=== PATIENT | female | born 1970 | race Caucasian/White ===

== ENCOUNTER 2022-05-30 10:49 | Observation (INO) | payer BC, SELFPAY ==
[2022-05-30] VITALS (7 sets, daily range): BP systolic 136–164; BP diastolic 75–94; PULSE 60–73; RESP 18; TEMP 36.3–36.6; O2SAT 97–100; BMI 34.4; BMI 34.2
--- NOTE | 2022-05-30 10:54 | ED.RN ---
PT SAW DR FOR SAME. LAST WEEK
--- NOTE | 2022-05-30 11:26 | CT_ITS ---
STUDY: CTA HEAD AND NECK WITH CONTRAST REASON FOR EXAM: Female, 51 years old. cephalgia, weakness right arm RADIATION DOSAGE (If Supplied By Facility): CTDIvol = ( 22.49 ) mGy, DLP = ( 809.77 ) mGycm TECHNIQUE: CT angiography was performed with a multi-detector CT scanner. Data acquisition was obtained from the skull base through the vertex following intravenous administration of IV 100mL [id number]-370. MIP images were reconstructed from the axial data set. Post-processing of the angiographic images was performed, with multiplanar reformation and 3D reconstruction. Individualized dose optimization techniques were used for this CT. COMPARISON: No relevant priors. FINDINGS: Normal bilateral petrous carotid arteries. Normal right cavernous carotid artery with a normal supraclinoid bifurcation. Normal left cavernous carotid artery with a normal supraclinoid bifurcation. Normal right A1 segments of the anterior cerebral artery. Normal left A1 segments of the anterior cerebral artery. Normal intact anterior communicating artery (ACOM). Normal bilateral A2 segments of the anterior cerebral arteries. Normal right M1 and M2 segments of the middle cerebral arteries, with a normal M1 bifurcation. Normal left M1 and M2 segments of the middle cerebral arteries, with a normal M1 bifurcation. Normal right posterior communicating artery (PCOM). Normal left posterior communicating artery (PCOM). Normal bilateral vertebral arteries. Normal basilar artery with a normal basilar bifurcation. The visualized bilateral superior cerebellar (SCA) arteries are normal. Normal bilateral P1, P2 and visualized P3 segments of the posterior cerebral arteries. There is no demonstrated aneurysm of the [place]. There is no demonstrated abnormality of the visualized brain. AORTIC ARCH: Normal visualized aortic arch. Normal origins of the brachiocephalic, left common carotid, and left subclavian arteries. RIGHT CAROTID ARTERIES: Normal right common carotid artery (CCA). Normal right common carotid bulb. Normal origin of the right internal carotid (ICA) artery without a hemodynamically significant stenosis. Normal visualized cervical portion of the right internal carotid artery. Normal origin of the right external carotid artery (ECA). LEFT CAROTID ARTERIES: Normal left common carotid artery (CCA). Normal left common carotid bulb. Normal origin of the left internal carotid (ICA) artery without a hemodynamically significant stenosis. Normal visualized cervical portion of the left internal carotid artery. Normal origin of the left external carotid artery (ECA). VERTEBRAL ARTERIES: There is enhancement within the bilateral vertebral arteries with a small left vertebral artery, and a dominant right vertebral artery. IMPRESSION: No evidence of significant steno-occlusive disease or aneurysm. Electronically Signed: Jonathan GilDO at 12:55 EDT , STUDY: CT BRAIN WITHOUT CONTRAST REASON FOR EXAM: Female, 51 years old. cephalgia, weakness right arm RADIATION DOSAGE (If Supplied By Facility): CTDIvol = ( 44.99 ) mGy, DLP = ( 779.24 ) mGycm TECHNIQUE: Transaxial CT imaging of the brain was performed without administration of intravenous contrast material. Individualized dose optimization techniques were used for this CT. COMPARISON: No relevant priors. FINDINGS: Normal soft tissue structures. Normal calvarium. Normal size ventricles and extra-axial spaces for the patient''s age. Normal white matter tracts of the cerebral hemispheres. Normal basal ganglia and thalami. Normal brainstem. Normal cerebellum. There is no intracranial hemorrhage. There are no findings of an acute ischemic infarction. Normal visualized paranasal sinuses. CT/CTA Head AND Neck W/ Contrast IMPRESSION: No evidence of acute intracranial bleed, mass or ischemia. Electronically Signed: Jonathan Gil DO at 12:55 EDT ,
--- NOTE | 2022-05-30 11:28 | EDS_ITS ---
HPI History of Present Illness Chief Complaint: Headache Detail of Chief Complaint: Headache, neck pain, left arm weakness Informant: patient and family Onset/Context/Timing Current Severity: 06/28 Narrative Narrative: Patient presents the emergency department with complaint of headache and neck pain and left arm weakness. Patient states that symptoms have been going on for about 5 days. Patient denies falls or head injuries. Patient does have history of migraines and she has had neck problems for quite some time and 20 years ago she was told she had herniated disks in her neck. Patient is never had pain in her head quite like this before. Patient states she cannot lay flat due to the amount of pain. She was seen by her primary care physician 5 days ago who ordered x-rays of her neck that were essentially unremarkable and only showed some degenerative changes at C5-6. Patient complains of some left arm weakness. She does have history of some peripheral neuropathy. She denies recent illness otherwise. Prior similar symptoms: No PFSH PFSH Medical History Chronic neck pain Nerve pain TIA (transient ischemic attack) Allergy/AdvReac Type Severity Reaction Status Date / Time cyclobenzaprine Allergy Other Verified 05/30/22 10:54 [From Flexeril] metaxalone [From Skelaxin] Allergy Itching Verified 05/30/22 10:54 moxifloxacin [From Avelox] Allergy Other Verified 05/30/22 10:54 pregabalin [From Lyrica] Allergy Other Verified 05/30/22 10:54 Social History Smoking Status: Never smoker ROS ROS ED Review of Systems ROS Unobtainable: other Constitutional Constitutional ED: Reports lethargy; Denies chills, fever(s), sweats or weight loss Eyes Eyes: Denies blurry vision, change in vision or diplopia ENT ENT ED: Denies rhinorrhea or sore throat Cardiovascular Cardiovascular: Reports chest pain and racing heartbeat; Denies orthopnea Respiratory/Chest Respiratory/Chest: Reports dyspnea and dyspnea on exertion; Denies cough, orthop terry or sputum Gastrointestinal Gastrointestinal: Denies abdominal pain, diarrhea, nausea or vomiting Genitourinary Genitourinary ED: Denies dysuria, hematuria or urinary frequency Musculoskeletal Musculoskeletal: Reports neck pain; Denies arthralgias, back pain or myalgias Integumentary Denies abscess, Abrasions or rash Neurologic Neurologic: Reports headache(s), weakness and other Details: Left arm weakness Psychiatric Psychiatric: Denies anxiety, depression or suicidal thoughts Endocrine Endocrinology: Denies polydipsia, polyphagia or polyuria Hematologic/Lymphatic Hematologic/Lymphatic: Denies easy bleeding, easy bruising or lymphadenopathy Allergic/Immunologic Allergic/Immunologic ED: Denies mouth swelling, tongue swelling or urticaria EXAM Physical Exam Const Vital Signs: 05/30/22 10:50 05/30/22 14:33 Temperature 97.9 F Temperature Source Temporal Pulse Rate 73 71 Respiratory Rate 18 18 Blood Pressure 164/81 H 159/94 H Blood Pressure Mean 108 115 Pulse Ox 100 100 Oxygen Delivery Method Room Air Room Air Positive well nourished and well developed General Appearance ED: well developed and NAD HEENT Reports TM's clear and moist mucous membranes HEENT Narrative: Tenderness over left temporal artery however I do not appreciate any firmness or induration. Patient also with tenderness over upper and lower teeth on the left. normocephalic and atraumatic; Negative for trauma or tenderness Tympanic Membrane ED: Yes TM's clear Eyes PERRL and EOMs intact bilaterally General Eye ED: Negative for pale conjunctiva or scleral icterus Neck no lymphadenopathy, supple and no JVD Neck Narrative: Tenderness over left lateral neck on exam. No masses palpated. No erythema or warmth noted. General: Negative for tenderness Chest Wall inspection of chest normal and palpation of chest normal Chest: Negative for tenderness Resp normal respiratory effort and clear to auscultation bilaterally Effort and Inspection: Negative for respiratory distress or pain with movement Auscultation: Negative for rhonchi, wheezes or diminished lung sounds Cardio regular rate, regular rhythm, S1 normal heart sound, S2 normal heart sound and no murmurs Peripheral Pulses: pulses 2+ throughout GI normal to inspection, nondistended, normoactive bowel sounds, soft to palpation, non-tender, non-distended and no masses Back/Spine no CVA tenderness and no thoracic nor lumbar tenderness Extremity normal to inspection General Extremety ED: Negative for edema General Extremity: Negative for edema Neuro oriented x3, CN's II-XII intact bilaterally, no sensory deficits noted and gait normal Neuro Narrative: No facial droop noted. Patient has some subtle left-sided arm weakness compared to the right side however she still has the ability to lift the arm off the bed to a count of 10. Sensorium / Orientation: awake, alert, oriented to person, oriented to place and oriented to time Motor Exam: strength 5/5 throughout and strength abnormal Psych mental status grossly normal Skin no rashes or lesions noted and no wounds MDM MDM MDM Narrative Medical decision making narrative: IV line established on arrival. Patient was medicated Dilaudid and Zofran. She had some pain relief with that but continues to complain of significant pain. Patient had a CT of the head and neck that were unremarkable. Lab work-up showed a normal white count but did have an elevated sed rate of 45. Chemistries unremarkable. At this point etiology of her headache and left arm weakness unclear. Will recommend admission for further work-up and evaluation such as possibly MRI of the head and neck. Case will be discussed with hospitalist evaluate for admission. Lab Data Attestation: I reviewed the patient's lab results. Labs: Laboratory Results - last 24 hr 05/30/22 05/30/22 11:15 11:15 WBC 9.6 RBC 5.52 H Hgb 16.3 H Hct 48.7 H MCV 88.2 MCH 29.5 MCHC 33.5 RDW Std Deviation 44.0 H RDW Coeff of Michael 13.6 Plt Count 233 MPV 10.2 Immature Gran % (Auto) 0.800 Neut % (Auto) 67.6 Lymph % (Auto) 24.1 [place] % (Auto) 5.1 Eos % (Auto) 1.9 Baso % (Auto) 0.5 Absolute Neuts (auto) 6.5 Absolute Lymphs (auto) 2.30 Nucleated RBC % 0 ESR 45 H Sodium 140 Potassium 3.9 Chloride 107 Carbon Dioxide 26.0 Anion Gap 7 BUN 14 Creatinine 0.69 Estim Creat Clear Calc 92.75 Est GFR (MDRD) Af Amer 114 Est GFR (MDRD) Non-Af 94 BUN/Creatinine Ratio 20.2 H Glucose 154 H Calcium 10.1 Radiography Diagnostic Testing: Clinical Impression(s) from Imaging Studies Head/Neck CTA 05/30/22 11:26 IMPRESSION: No evidence of acute intracranial bleed, mass or ischemia. Electronically Signed: Jonathan Gil DO at 12:55 EDT , Discharge Plan Dx/Rx/DC Orders Clinical Impression: Acute intractable headache, Neck pain, Left arm weakness Disposition Disposition: Acute Care Hospital [facility]
[2022-05-30] MEDS: 0.9% Normal Saline 1,000 ML 150 ML IV (11:34)
[2022-05-30] MEDS: Ondansetron 4 MG/2 ML Vial IV (11:35)
[2022-05-30] MEDS: HYDROmorphone 1 MG/ML Syringe IV (11:36)
[2022-05-30 11:59] LABS: Absolute Neutrophil Count 6.5 X10^3/uL (2.0-7.7); Basophil# 0.05 X10^3/uL; Basophil% 0.5 % (0-1); Eosinophil# 0.18 X10^3/uL; Eosinophils% 1.9 % (0-5); Hematocrit 48.7 % (37-47); Hemoglobin 16.3 g/dL (12.0-15.0); Lymphocyte % 24.1 % (19-41); Mean Corp Hgb Conc 33.5 g/dL (32-36); Mean Corpuscular Hgb 29.5 pg (27.0-32.0); Mean Corpuscular Volume 88.2 fL (81-99); Mean Platelet Vol. 10.2 fl (6.2-12.0); Monocyte# 0.49 X10^3/uL; Monocyte% 5.1 % (0-10); NRBC Flagged by Analyzer 0 % (0-5); Neutrophil # 6.46 X10^3/uL (2.7-7.7); Neutrophil % 67.6 % (47-70); Platelet Count 233 K/mm3 (150-450); RBC Distribution Width CV 13.6 % (11.6-14.6); Red Blood Count 5.52 M/mm3 (4.2-5.4); White Blood Count 9.6 K/mm3 (4.4-11.0)
[2022-05-30 12:00] LABS: Anion Gap 7 (5-15); BUN 14 mg/dL (7-18); BUN/Creat Ratio 20.2 RATIO (10-20); Calcium,Total 10.1 mg/dL (8.5-10.1); Chloride 107 mmol/L (98-107); Creatinine, Serum 0.69 mg/dL (0.55-1.02); EST Glomerular Filtration Rate 94 mL/min (>60); Est Glom Filt Rate - Afr Amer 114 mL/min (>60); Estimated Creatinine Clearance 92.75 ml/min; Glucose 154 mg/dL (74-106); Potassium 3.9 mmol/L (3.5-5.1); Sodium Level 140 mmol/L (136-145)
[2022-05-30 12:07] LABS: Erythrocyte Sedimentation Rate 45 mm/hr (0-30)
--- NOTE | 2022-05-30 14:01 | NURSING ---
DR LINDA LOPEZ
--- NOTE | 2022-05-30 14:31 | HP.PCM.HOS_ITS ---
HPI - General General Date of Admission: 05/30/22 Date of Service: 05/30/22 Chief Complaint: Neck pain and headache for 5 days HPI Narrative DESTIN KRUSE, is a 51 F came to ED for headache, neck pain ongoing for 5 days. She also feels left hand installer interior assemblies weakness/arm weakness. She was told 20 years ago that she has bulging disc in C-spine. She recently had C-spine x-ray done by PCP in [facility] which shows degenerative changes pronounced at C5-C6. Patient describes her headache 6-7/10 intensity, constant, alternated from neck left side and then spread proximally occipital and to forehead and half of left face. This headache does not feel like migraine headache as usually her migraine headache is associated with photophobia and phonophobia, tearing, rhinorrhea and sinus congestion. She also has ear pain but denies tinnitus or hearing loss. No vertigo. She has bad third molar upper and lower on left side and probably ear pain is referred pain from teeth. No fever or chills. Has bilateral finger tingling numbness, old problem since age of 29. She states she has idiopathic neuropathy in her mother herself and her daughter. She also has diabetes but she had diabetes diagnosed recently. She has Charcot feet and wears boot in the left leg. 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 She had vascular studies done in lower extremity and denies peripheral arterial disease. No history of PA/coronary artery disease or stroke in the past. She denies other focal symptoms including facial droop, dysarthria language deficit, vision loss, field of vision loss. Denies burning micturition. ED vitals reviewed. Lab work reviewed. She had CTA head and neck which did not show evidence of acute intracranial bleed mass or ischemia. [facility] Medical History Chronic neck pain Nerve pain TIA (transient ischemic attack) Allergy/AdvReac Type Severity Reaction Status Date / Time cyclobenzaprine Allergy Other Verified 05/30/22 10:54 [From Flexeril] metaxalone [From Skelaxin] Allergy Itching Verified 05/30/22 10:54 moxifloxacin [From Avelox] Allergy Other Verified 05/30/22 10:54 pregabalin [From Lyrica] Allergy Other Verified 05/30/22 10:54 Social History Smoking Status: Never smoker ROS ROS Narrative Constitutional: No fever. Headache and neck pain HEENT: No blurry vision. Ear pain probably referred pain from the left upper and lower molar. Reports systems reviewed and no addt'l complaints, except as documented Respiratory/Chest: Denies chest pain, shortness of breath at rest or with exertion Gastrointestinal: Denies coffee ground emesis, hematemesis or vomiting Genitourinary: Denies burning urination or new urinary tract symptoms Musculoskeletal: Charcot joint in left feet. ROM restricted. Rest as described in total time spent in [id number] encounter with history taking, physical exam, labs review, review of imaging and discussion of assessment and plan with the patient: 50 minutes Neurologic: Denies seizure-like activity. Has history of chronic migraine headache. She states this headache is different from her usual migraine headache. skin: No ulcer. No rash Endocrinology: Reports systems reviewed and no addt'l complaints, except as documented Hematologic/Lymphatic: Reports systems reviewed and no addt'l complaints, except as documented Rest 14 ROS are negative except as mentioned in HPI Vital Signs Vital Signs Vital Signs: 05/30/22 10:50 Temperature 97.9 F Temperature Source Temporal Pulse Rate 73 Respiratory Rate 18 Blood Pressure 164/81 H Blood Pressure Mean 108 Pulse Ox 100 Oxygen Delivery Method Room Air Weight Weight: 220 lb Body Mass Index (BMI) 34.4 Physical Exam Narrative General: Alert, Oriented x3, Cooperative HEENT: Otoscopic exam shows EAC normal and clear. Light reflex and TM seen. Atraumatic, PERRLA, EOMI, Normocephalic Oral: Dental caries left upper and lower and uninterrupted third left upper and lower molar. No oral lesions/ Ulcerations Neck: Supple, No JVD, Negative Carotid Bruits Lungs: Air entry diminished in bilateral lung bases. No crepitation/rhonchi Cardiovascular: Regular rate, Regular Rhythm, Normal S1, Normal S2, No murmurs Abdomen: Bowel Sounds Present, Soft, Non Tender, Non-Distended : No renal angle tenderness. No suprapubic tenderness. Extremities: No edema, Capillary Refill Less than 3 Seconds Skin: No rashes, No breakdown Musculoskeletal: No Tenderness to Palpation of Joints or Extremities. Left shoulder abduction, abduction, flexion 5/5. Left hand installer interior assemblies 4+/5. Right hand installer interior assemblies 5/5. Right lower extremity not checked as she wears CAM foot. RLE 5/5 at hip and knee joints. Neurological: Cranial nerves II-XII grossly intact, DTR 2+/4 and Symmetrical, Neuro grossly intact. No change in sensation. Psych/Mental Status: Flat affect Results Lab / Micro Data Result Diagrams: 05/30/22 11:15 05/30/22 11:15 Labs: Laboratory Results - last 24 hr 05/30/22 11:15: WBC 9.6, RBC 5.52 H, Hgb 16.3 H, Hct 48.7 H, MCV 88.2, MCH 29.5, MCHC 33.5, RDW Std Deviation 44.0 H, RDW Coeff of Michael 13.6, Plt Count 233, MPV 10.2, Immature Gran % (Auto) 0.800, Neut % (Auto) 67.6, Lymph % (Auto) 24.1, [place] % (Auto) 5.1, Eos % (Auto) 1.9, Baso % (Auto) 0.5, Absolute Neuts (auto) 6.5, Absolute Lymphs (auto) 2.30, Nucleated RBC % 0, ESR 45 H 05/30/22 11:15: Sodium 140, Potassium 3.9, Chloride 107, Carbon Dioxide 26.0, Anion Gap 7, BUN 14, Creatinine 0.69, Estim Creat Clear Calc 92.75, Est GFR (MDRD) Af Amer 114, Est GFR (MDRD) Non-Af 94, BUN/Creatinine Ratio 20.2 H, Glucose 154 H, Calcium 10.1 Radiology Impression Head/Neck CTA 05/30/22 11:26 IMPRESSION: No evidence of acute intracranial bleed, mass or ischemia. Electronically Signed: Jonathan Gil DO at 12:55 EDT , Assessment & Plan Assessment/Plan (1) Acute intractable headache: PLAN: This is 51-year-old female admitted with intractable headache and neck pain. 1. Acute on chronic headache, neck pain and left hand mild weakness: Patient is being admitted to PCU. I do not think patient has signs and symptoms suggestive of CVA/TIA or stroke. Her symptoms is more related to cervical spine degenerative disc disease. MRI brain and C-spine ordered. PT and OT ordered. Pain control with Tylenol and Motrin and morphine as per severity of pain. CTA does not show any acute intracranial bleed mass or ischemia. ESR elevated but pain is characteristic of temporal arteritis. Left restoration is not tender and temporal artery not palpable. Her mild left hand weakness may be due to cervical neuropathy/radiculopathy. She might need EMG as an outpatient. Further work-up SOC consult if MRI Head and C-spine warrants. 2 chronic C-spine degenerative disc disease: 3. Chronic migraine and chronic lower extremity idiopathic neuropathy: Patient is not on acute migraine headache or migraine prophylactic medication at home. She does not take Imitrex. The symptoms in her family. 4. Diabetes mellitus type 2: Glucose 154. Accu-Chek insulin coverage with Humalog sliding scale. A1c tomorrow AM. 5. Hypertension: BP elevated. Lisinopril 5 mg daily ordered. 6. DVT prophylaxis: Lovenox 40 subcu daily Living will/advanced directive/end of life care: Patient does not have living will or advanced directive. His son is present in ED is next to kin. After discussion of benefits/risks procedures involved with full code, DNR CC arrest and DNR CC, the patient opted for full code. Patient does want artificial life support including intubation, tube feed, ventilator and/chest compression, central venous catheter, vasopressor and DC shock if needed Total time spent in [id number] encounter in discussion of advanced directive 16 minutes. (2) Neck pain: Charges/Coding Visit Charges OBSV E&M: 67324 Initial observation care L3 Procedures Hospitalists Procedures: 98627 Advncd Care Plan 30 Min
--- NOTE | 2022-05-30 14:42 | NURSING ---
MED SURG OBS LINDA INTRACTABLE HEADACHE, NECK PAIN, LEFT ARM NUMBNESS
[2022-05-30] MEDS: Enoxaparin 40 MG/0.4 ML Syringe SC (16:41)
[2022-05-30] MEDS: Lisinopril 5 MG Tablet PO (16:41)
[2022-05-30] MEDS: Lactated Ringers 1,000 ML 75 ML IV (16:41)
[2022-05-30] MEDS: Morphine 2 MG/ML Syringe IV (16:42)
[2022-05-30] MEDS: 0.9% Saline Lock 10 ML Syringe IV (16:43)
[2022-05-30 17:50] LABS: Bedside Glucose 142 mg/dL (74-106)
[2022-05-30] MEDS: Ibuprofen 400 MG Tablet PO (22:05)
[2022-05-31] VITALS (10 sets, daily range): BP systolic 116–161; BP diastolic 66–84; PULSE 56–71; RESP 18; TEMP 36.1–36.8; O2SAT 94–99
[2022-05-31 01:31] LABS: Bedside Glucose 149 mg/dL (74-106)
[2022-05-31] MEDS: Ibuprofen 400 MG Tablet PO ×3 (05:25→15:19)
[2022-05-31 05:52] LABS: Absolute Lymphocyte Count 2.05 X10^3/uL (0.83-4.51); Basophil# 0.04 X10^3/uL; Basophil% 0.5 % (0-1); Eosinophil# 0.16 X10^3/uL; Hematocrit 44.3 % (37-47); Hemoglobin 14.6 g/dL (12.0-15.0); Lymphocyte # 2.05 X10^3/ul (0.83-4.51); Lymphocyte % 26.2 % (19-41); Mean Corpuscular Hgb 29.6 pg (27.0-32.0); Mean Corpuscular Volume 89.9 fL (81-99); Mean Platelet Vol. 10.5 fl (6.2-12.0); Monocyte# 0.51 X10^3/uL; Monocyte% 6.5 % (0-10); NRBC Flagged by Analyzer 0 % (0-5); Neutrophil # 5.02 X10^3/uL (2.7-7.7); Neutrophil % 64.4 % (47-70); Platelet Count 192 K/mm3 (150-450); RBC Distribution Width CV 13.6 % (11.6-14.6); RBC Distribution Width SD 44.5 fl (35.1-43.9); Red Blood Count 4.93 M/mm3 (4.2-5.4); White Blood Count 7.8 K/mm3 (4.4-11.0)
[2022-05-31] MEDS: Insulin Lispro 100 UNIT/ML INSULN.PEN SC ×2 (06:24→20:49)
[2022-05-31 06:27] LABS: Anion Gap 8 (5-15); BUN 15 mg/dL (7-18); BUN/Creat Ratio 29.9 RATIO (10-20); Chloride 110 mmol/L (98-107); EST Glomerular Filtration Rate 137 mL/min (>60); Est Glom Filt Rate - Afr Amer 166 mL/min (>60); Estimated Creatinine Clearance 137.55 ml/min; Glucose 165 mg/dL (74-106); Potassium 3.9 mmol/L (3.5-5.1); Sodium Level 140 mmol/L (136-145); Thyroid Stim Hormone (TSH) 1.81 uIU/mL (0.358-3.74)
[2022-05-31 07:32] LABS: Hemoglobin A1c 8.2 % (3.8-5.6)
[2022-05-31] MEDS: 0.9% Saline Lock 10 ML Syringe IV ×3 (07:53→20:47)
[2022-05-31] MEDS: Morphine 2 MG/ML Syringe IV (07:54)
[2022-05-31 07:55] LABS: Bedside Glucose 163 mg/dL (74-106)
--- NOTE | 2022-05-31 09:00 | MRI_ITS ---
STUDY: MRI BRAIN WITHOUT CONTRAST REASON FOR EXAM: Female, 51 years old. left sided headache -- migraine TECHNIQUE: Standardized multiplanar fat and water weighted pulse sequences were obtained. COMPARISON: CTA of the head dated May 30, 2022. FINDINGS: Normal size of the ventricles and extra-axial spaces for the patient''s age. Normal white matter tracts of the supratentorial brain. There is no evidence for recent intracranial ischemia or other cause of cytotoxic edema on diffusion weighted imaging (DWI). Normal T2* images of the brain without demonstrated susceptibility artifact. There is no demonstrated hemosiderin stain. Normal bilateral basal ganglia. Normal thalami. There is no extra-axial fluid accumulation. Normal flow voids within the major intracranial circulation suggesting patency by spin echo criteria. Normal sella turcica, pituitary gland, infundibular stalk, optic chiasm and hypothalamus. Normal tectal plate and pineal gland. Normal midbrain, eleni and medulla. Normal cerebellum. Normal basal cisterns. Normal bilateral temporal bones. Normal bilateral internal auditory canals. No demonstrated orbital abnormality, within the constraints of a routine brain study. Normal visualized paranasal sinuses. Normal calvarium and skull base. Normal visualized soft tissue structures. Normal visualized upper cervical spine. MRI/Brain without Contrast IMPRESSION: Normal unenhanced MRI of the brain. Electronically Signed: Ibrahima Oconnor MD at 13:34 EDT ,
--- NOTE | 2022-05-31 09:00 | MRI_ITS ---
STUDY: MRI CERVICAL SPINE WITHOUT CONTRAST REASON FOR EXAM: Female, 51 years old. headache/left sided neck pain TECHNIQUE: Standardized fat and water weighted pulse sequences were obtained in the sagittal and axial planes. COMPARISON: None FINDINGS: Normal foramen magnum and brainstem-cervical cord junction. Normal craniovertebral junction. Normal anterior atlantoaxial articulation. Normal odontoid process. There is straightening of the normal cervical lordosis. Normal vertebral bodies and posterior osseous elements. No marrow edema or occult fracture or compression deformity is present. C2-3: Normal endplates. Disc desiccation. Normal disc height and morphology. Normal central canal and intervertebral neural foramina. C3-4: Normal endplates. Disc desiccation. Normal disc height and morphology. Normal central canal and intervertebral neural foramina. C4-5: Normal endplates. Disc desiccation with mild posterior disc space narrowing resulting in a shallow midline disc protrusion and mild central canal stenosis. Normal left neural foramen. Mild right foraminal stenosis is present secondary to uncovertebral hypertrophy. C5-6: Normal endplates. Moderate disc space narrowing with broad-based is herniation eccentric to the left due to a superimposed disc protrusion causes compression of the left anterior aspect of the cord and moderate central canal stenosis. Mild focal syrinx formation is present at the C5-C6 level consistent with sequela of compressive myelomalacia. Moderate left foraminal stenosis with nerve root compression secondary to uncovertebral hypertrophy. Normal right neural foramen. C6-7: Normal endplates. Diffuse disc desiccation with mild disc space narrowing and a midline shallow disc protrusion causing compression on anterior aspect of the cord and mild to moderate central canal stenosis. Normal intervertebral neural foramina. C7-T1: Normal endplates. Normal disc height, signal and morphology. Normal central canal and intervertebral neural foramina. Normal remaining aspects of the cervical cord. Normal visualized soft tissue structures. MRI/Spine Cervical (Routine) IMPRESSION: 1. Multilevel degenerative changes, as described above. 2. Disc protrusion and broad-based is herniation at C5-C6 results in moderate compression on the left anterior aspect of the cord and moderate central canal stenosis with mild focal syrinx formation consistent with sequela of compressive myelomalacia 3. Mild to moderate central canal stenosis with mild compression anterior aspect of the cord at C6-C7 4. Moderate left foraminal stenosis with nerve root compression at C5-C6. Electronically Signed: Ibrahima Oconnor MD at 14:56 EDT ,
--- NOTE | 2022-05-31 09:13 | PN.HOSP_ITS ---
Subjective Subjective Still with pain over left side of her face. Complains of pain in her left lower tooth which has been an ongoing issue for 15 years. Still does have weakness in her left upper extremity. Objective Data Objective Data Vital Signs: Vital Signs Temp Pulse Resp BP Pulse Ox O2 Del Method 36.1 C L 60 18 122/84 H 98 Room Air 05/31/22 04:00 05/31/22 07:00 05/31/22 04:00 05/31/22 04:00 05/31/22 08:00 05/31/22 08:00 Oxygen Delivery Method Room Air Weight: 105.2 kg Body Mass Index (BMI) 34.2 Intake & Output: Intake and Output for Last 24 Hours 05/29/22 05/30/22 05/31/22 23:59 23:59 23:59 Intake Total 1360 / 1360 972.5 / 972.5 Balance 1360 / 1360 972.5 / 972.5 Lab / Micro Data Result Diagrams: 05/31/22 05:15 05/31/22 05:15 Labs: Laboratory Results - last 24 hr 05/30/22 11:15: WBC 9.6, RBC 5.52 H, Hgb 16.3 H, Hct 48.7 H, MCV 88.2, MCH 29.5, MCHC 33.5, RDW Std Deviation 44.0 H, RDW Coeff of Michael 13.6, Plt Count 233, MPV 1 0.2, Immature Gran % (Auto) 0.800, Neut % (Auto) 67.6, Lymph % (Auto) 24.1, Placer % (Auto) 5.1, Eos % (Auto) 1.9, Baso % (Auto) 0.5, Absolute Neuts (auto) 6.5, Absolute Lymphs (auto) 2.30, Nucleated RBC % 0, ESR 45 H 05/30/22 11:15: Sodium 140, Potassium 3.9, Chloride 107, Carbon Dioxide 26.0, Anion Gap 7, BUN 14, Creatinine 0.69, Estim Creat Clear Calc 92.75, Est GFR (MDRD) Af Amer 114, Est GFR (MDRD) Non-Af 94, BUN/Creatinine Ratio 20.2 H, Glucose 154 H, Calcium 10.1 05/30/22 11:15: Magnesium 2.0 05/30/22 16:41: POC Glucose 142 H 05/30/22 21:59: POC Glucose 149 H 05/31/22 05:15: WBC 7.8, RBC 4.93, Hgb 14.6, Hct 44.3, MCV 89.9, MCH 29.6, MCHC 33.0, RDW Std Deviation 44.5 H, RDW Coeff of Michael 13.6, Plt Count 192, MPV 10.5, Immature Gran % (Auto) 0.400, Neut % (Auto) 64.4, Lymph % (Auto) 26.2, Placer % (Auto) 6.5, Eos % (Auto) 2.0, Baso % (Auto) 0.5, Absolute Neuts (auto) 5.0, Absolute Lymphs (auto) 2.05, Nucleated RBC % 0 05/31/22 05:15: Sodium 140, Potassium 3.9, Chloride 110 H, Carbon Dioxide 22.0, Anion Gap 8, BUN 15, Creatinine 0.50 L, Estim Creat Clear Calc 137.55, Est GFR (MDRD) Af Amer 166, Est GFR (MDRD) Non-Af 137, BUN/Creatinine Ratio 29.9 H, Glucose 165 H, Calcium 9.0, TSH 1.81 05/31/22 05:15: Hemoglobin A1c 8.2 H 05/31/22 06:20: POC Glucose 163 H Radiography Diagnostic Testing: Radiology Impression Head/Neck CTA 05/30/22 11:26 IMPRESSION: No evidence of acute intracranial bleed, mass or ischemia. Electronically Signed: Jonathan Gil DO at 12:55 EDT Reading Location ID and State: [facility] / [place] , Service support , Physical Exam Const alert and no apparent distress HEENT moist oral mucous membranes HEENT Narrative: Teeth are intact but patient had very exquisite tenderness over her left lower molar. Slight tenderness palpation over the left side of her face. Resp normal respiratory effort, no retractions, no use of accessory muscles and clear to auscultation bilaterally Cardio regular rate, regular rhythm, S1 normal heart sound and S2 normal heart sound GI normal to inspection, nondistended, normoactive bowel sounds Assessment & Plan Assessment/Plan (1) Acute intractable headache: PLAN: Acute on chronic headache, neck pain and left hand mild weakness: Patient is being admitted to PCU. I do not think patient has signs and symptoms suggestive of CVA/TIA or stroke. Her symptoms is more related to cervical spine degenerative disc disease. MRI brain negative C-spine ordered. PT and OT ordered. Pain control with Tylenol and Motrin and morphine as per severity of pain. CTA does not show any acute intracranial bleed mass or ischemia. ESR elevated but pain is characteristic of temporal arteritis. Left voodoo is not tender and temporal artery not palpable. Her mild left hand weakness may be due to cervical neuropathy/radiculopathy. She might need EMG as an outpatient. Further work-up SOC consult if MRI Head and C-spine warrants. Chronic migraine and chronic lower extremity idiopathic neuropathy: Patient is not on acute migraine headache or migraine prophylactic medication at home. She does not take Imitrex. The symptoms in her family. DC narcotics Consult SOC telemetry neurology: TGN? (2) Neck pain: PLAN: chronic C-spine degenerative disc disease: MRI c-spine ordered PLAN: Plan Chronic conditions: * Diabetes mellitus type 2: Glucose 154. Accu-Chek insulin coverage with Humalog sliding scale. A1c tomorrow AM. * Hypertension: BP elevated. Lisinopril 5 mg daily ordered. * DVT prophylaxis: Lovenox 40 subcu daily Living will/advanced directive/end of life care: Patient does not have living will or advanced directive. His son is present in ED is next to kin. After discussion of benefits/risks procedures involved with full code, DNR CC arrest and DNR CC, the patient opted for full code. Patient does want artificial life support including intubation, tube feed, ventilator and/chest compression, central venous catheter, vasopressor and DC shock if needed Total time spent in [id number] encounter in discussion of advanced directive 16 minutes. Charges/Coding Visit Charges Inpatient E&M: 33482 [facility] Hosp L3
[2022-05-31] MEDS: Lisinopril 5 MG Tablet PO (10:26)
[2022-05-31] MEDS: Enoxaparin 40 MG/0.4 ML Syringe SC (10:26)
[2022-05-31 12:05] LABS: Bedside Glucose 147 mg/dL (74-106)
--- NOTE | 2022-05-31 13:57 | CT_ITS ---
EXAM: CT MAXILLOFACIAL WITHOUT INTRAVENOUS CONTRAST CLINICAL INDICATION: left lower tooth pain TECHNIQUE: Helically acquired images were obtained of the face without intravenous contrast. This CT exam was performed using one or more of the following dose reduction techniques: automated exposure control, adjustment of the mA and/or kV according to patient size, and/or use of iterative reconstruction technique. This report was created using [email or web address] report generation technology. RADIATION DOSE: CTDIvol = 25.01 mGy, DLP = 473.62 mGy-cm COMPARISON: None. FINDINGS: BONES/JOINTS: Unremarkable. No displaced fracture. No discrete lytic or blastic abnormalities. SOFT TISSUES: Unremarkable. No focal subcutaneous swelling. No discrete fluid collections. ORBITS: Unremarkable. Both globes are unremarkable. Extraocular muscles are normal. Retrobulbar fat appears unremarkable. SINUSES: Unremarkable as visualized. Clear. MASTOID AIR CELLS: Unremarkable as visualized. Clear. DENTAL: No acute findings. No periodontal osseous erosion. CT/Sinus/Facial Bone IMPRESSION: Negative CT facial bones without intravenous contrast. Electronically Signed: Bacilio Wang MD at 16:25 EDT ,
--- NOTE | 2022-05-31 13:58 | TELEMED_ITS ---
SOC Telemed has confirmed receipt of a request for visit. This document confirms receipt of the order initiating the consult. To find the results of the consultation, please view the patient's reports for the scanned Telemed Consult.
[2022-05-31] MEDS: oxyCODONE 5 MG Tablet 10 MG PO ×2 (16:07→20:36)
[2022-05-31] MEDS: dexAMETHasone 4 MG/ML Vial IV ×2 (16:08→20:46)
[2022-05-31 17:45] LABS: Bedside Glucose 149 mg/dL (74-106)
[2022-05-31 23:11] LABS: Bedside Glucose 286 mg/dL (74-106)
[2022-06-01 02:59] VITALS: PULSE 58
[2022-06-01 03:16] VITALS: BP 136/64; PULSE 60; RESP 18; TEMP 36.5; O2SAT 93
[2022-06-01] MEDS: oxyCODONE 5 MG Tablet 10 MG PO ×2 (03:18→13:34)
[2022-06-01] MEDS: dexAMETHasone 4 MG/ML Vial IV ×2 (03:22→09:26)
[2022-06-01] MEDS: 0.9% Saline Lock 10 ML Syringe IV (03:23)
[2022-06-01] MEDS: Insulin Lispro 100 UNIT/ML INSULN.PEN SC ×2 (06:23→11:18)
[2022-06-01 06:55] LABS: Bedside Glucose 264 mg/dL (74-106)
[2022-06-01 07:10] VITALS: O2SAT 93
[2022-06-01 07:21] VITALS: PULSE 64
--- NOTE | 2022-06-01 08:12 | PN.HOSP_ITS ---
Subjective Subjective Face feels much better today. Objective Data Objective Data Vital Signs: Vital Signs Temp Pulse Resp BP Pulse Ox O2 Del Method 36.5 C L 64 18 136/64 H 93 Room Air 06/01/22 03:16 06/01/22 07:21 06/01/22 03:16 06/01/22 03:16 06/01/22 07:10 06/01/22 07:10 Oxygen Delivery Method Room Air Weight: 105 kg Body Mass Index (BMI) 34.2 Intake & Output: Intake and Output for Last 24 Hours 05/30/22 05/31/22 06/01/22 23:59 23:59 23:59 Intake Total 1360 / 1360 1572.5 / 1572.5 120 / 120 Balance 1360 / 1360 1572.5 / 1572.5 120 / 120 Lab / Micro Data Result Diagrams: 05/31/22 05:15 05/31/22 05:15 Labs: Laboratory Results - last 24 hr 05/31/22 11:45: POC Glucose 147 H 05/31/22 16:15: POC Glucose 149 H 05/31/22 20:45: POC Glucose 286 H 06/01/22 06:22: POC Glucose 264 H Radiography Diagnostic Testing: Radiology Impression Brain MRI 05/31/22 09:00 IMPRESSION: Normal unenhanced MRI of the brain. Electronically Signed: Ibrahima Oconnor MD at 13:34 EDT , Cervical Spine MRI 05/31/22 09:00 IMPRESSION: 1. Multilevel degenerative changes, as described above. 2. Disc protrusion and broad-based is herniation at C5-C6 results in moderate compression on the left anterior aspect of the cord and moderate central canal stenosis with mild focal syrinx formation consistent with sequela of compressive myelomalacia 3. Mild to moderate central canal stenosis with mild compression anterior aspect of the cord at C6-C7 4. Moderate left foraminal stenosis with nerve root compression at C5-C6. Electronically Signed: Ibrahima Oconnor MD at 14:56 EDT , Facial/Sinus 05/31/22 13:57 IMPRESSION: Negative CT facial bones without intravenous contrast. Electronically Signed: Bacilio Wang MD at 16:25 EDT Reading Location ID and State: [facility] / [place] , Service support , Physical Exam Const alert and no apparent distress HEENT head/scalp atraumatic HEENT Narrative: slight tenderness over right side of face. Cardio regular rate, regular rhythm, S1 normal heart sound and S2 normal heart sound GI normal to inspection, nondistended, normoactive bowel sounds and soft to palpation Neuro no focal motor deficits and no sensory deficits noted Assessment & Plan Assessment/Plan (1) Acute intractable headache: PLAN: Acute on chronic headache, neck pain and left hand mild weakness: Patient is being admitted to PCU. I do not think patient has signs and symptoms suggestive of CVA/TIA or stroke. Her symptoms is more related to cervical spine degenerative disc disease. MRI brain negative PT and OT ordered. Pain control with Tylenol and Motrin and morphine as per severity of pain. CTA does not show any acute intracranial bleed mass or ischemia. ESR elevated but pain is characteristic of temporal arteritis. Left episcopalian is not tender and temporal artery not palpable. Her mild left hand weakness may be due to cervical neuropathy/radiculopathy. She might need EMG as an outpatient. Further work-up SOC consult if MRI Head and C-spine warrants. Chronic migraine and chronic lower extremity idiopathic neuropathy: Patient is not on acute migraine headache or migraine prophylactic medication at home. She does not take Imitrex. The symptoms in her family. 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 Recommendation for Tegretol 200 BID and follow up with [facility] facility. (2) Cord compression: PLAN: MRI cervical spine showed disc protrusion and broad-based herniation at C5-6 with moderate compression of the left anterior aspect of the cord and moderate central canal stenosis with mild focal syrinx formation consistent with sequelae of a compression myelomalacia.? Also noted mild to moderate central canal stenosis with mild compression anterior aspect of the cord at C6-C7.? Moderate left foraminal stenosis with nerve root compression at C5-C6. Discussed with Dr. Campos, who is currently out of town.? Discussed report and he recommended gabapentin 100 3 times daily as well as Decadron 4 mg IV for the next 24 hours.? He will be available to see the patient on the . Seen by Dr. Campos today and recommended pain control and outpatient follow-up. May be considered for cervical epidural injections. DC home with prednisone burst. PLAN: Plan Chronic conditions: * Diabetes mellitus type 2: Glucose 154. Accu-Chek insulin coverage with Humalog sliding scale. A1c tomorrow AM. * Hypertension: BP elevated. Lisinopril 5 mg daily ordered. * DVT prophylaxis: Lovenox 40 subcu daily Living will/advanced directive/end of life care: Patient does not have living will or advanced directive. His son is present in ED is next to kin. After discussion of benefits/risks procedures involved with full code, DNR CC arrest and DNR CC, the patient opted for full code. Patient does want artificial life support including intubation, tube feed, ventilator and/chest compression, central venous catheter, vasopressor and DC shock if needed Total time spent in [id number] encounter in discussion of advanced directive 16 minutes.
[2022-06-01 09:15] VITALS: BP 145/76; PULSE 57; RESP 16; TEMP 36.5; O2SAT 96
[2022-06-01] MEDS: carBAMazepine 200 MG Tablet PO (09:26)
[2022-06-01] MEDS: Enoxaparin 40 MG/0.4 ML Syringe SC (09:26)
[2022-06-01] MEDS: Lisinopril 5 MG Tablet PO (09:26)
--- NOTE | 2022-06-01 11:36 | CON.PCM.OR_ITS ---
HPI Consult Data Date of Consult: 06/01/22 HPI Narrative Reason for Consultation: Cervical stenosis HPI Narrative: The patient is a 51-year-old female who was admitted for neck pain, as well as pain in the left side of the face and subjective bilateral upper extremity weakness. She states she has had episodic neck pain for many years. She denies any history of neck surgeries or neck injections. She states that this past Tuesday the left side of her face began to hurt including her left cheek, the region around her left eye and ear. She was seen and evaluated in the ER and subsequently admitted. Multiple imaging studies were performed including a cervical MRI which showed cervical stenosis and subsequently spine surgery was consulted. The patient does not describe mild stiffness in the neck with minimal pain. She does have a history of neuropathy in the bilateral feet associated with a diagnosis of diabetes. She does state that she has some mild tingling in the fingers of the bilateral hands and that her upper extremities feel weak . She denies any other acute numbness tingling weakness or changes in bowel or bladder function. FORMERLY [facility], 1928–1983 Medical History (Updated 06/01/22 @ 11:[address] Bennie Campos, ) Chronic neck pain Migraine Nerve pain TIA (transient ischemic attack) Home Medications cetirizine 10 mg tablet (Zyrtec) 10 mg PO DAILY allergies 05/30/22 [History Last Taken 05/29/22 21:00] cholecalciferol (vitamin D3) 1,250 mcg (50,000 unit) capsule 1 unit PO [facility] 05/30/22 [History Last Taken 05/26/22] Allergy/AdvReac Type Severity Reaction Status Date / Time cyclobenzaprine Allergy Other Verified 05/30/22 10:54 [From Flexeril] metaxalone [From Skelaxin] Allergy Itching Verified 05/30/22 10:54 moxifloxacin [From Avelox] Allergy Other Verified 05/30/22 10:54 pregabalin [From Lyrica] Allergy Other Verified 05/30/22 10:54 Surgical History (Updated 05/31/22 @ 09:17 by Lianna Jimenez) History of laparoscopic cholecystectomy Hx of laparoscopy Social History Smoking Status: Current every day smoker tobacco type: cigarettes Vital Signs Vital Signs Vital Signs: 05/31/22 16:00 05/31/22 16:20 05/31/22 17:00 Temperature 98.1 F Temperature Source Temporal Pulse Rate 60 71 Pulse Strength Respiratory Rate 18 Respiratory Effort Normal Non-Labored Respiratory Depth Normal Respiratory Pattern Normal Blood Pressure 161/76 H Blood Pressure Mean 104 Blood Pressure Source Monitor Blood Pressure Position Sitting Blood Pressure Location Left Arm Pulse Ox 95 Oxygen Delivery Method Room Air Room Air 05/31/22 20:39 05/31/22 20:52 05/31/22 20:55 Temperature 98.2 F Temperature Source Oral Pulse Rate 67 Pulse Strength Normal (2+) Respiratory Rate 18 Respiratory Effort Normal Non-Labored Respiratory Depth Normal Respiratory Pattern Normal Blood Pressure 116/66 Blood Pressure Mean 82 Blood Pressure Source Monitor Blood Pressure Position Semi-Fowlers Blood Pressure Location Left Arm Pulse Ox 94 Oxygen Delivery Method Room Air Room Air 05/31/22 18:59 06/01/22 03:16 06/01/22 03:29 Temperature 97.7 F L Temperature Source Temporal Pulse Rate 64 60 Pulse Strength Respiratory Rate 18 Respiratory Effort Normal Non-Labored Respiratory Depth Normal Respiratory Pattern Normal Blood Pressure 136/64 H Blood Pressure Mean 88 Blood Pressure Source Monitor Blood Pressure Position Semi-Fowlers Blood Pressure Location Left Arm Pulse Ox 93 Oxygen Delivery Method Room Air Room Air 06/01/22 02:59 06/01/22 07:10 06/01/22 07:21 Temperature Temperature Source Pulse Rate 58 L 64 Pulse Strength Respiratory Rate Respiratory Effort Respiratory Depth Respiratory Pattern Blood Pressure Blood Pressure Mean Blood Pressure Source Blood Pressure Position Blood Pressure Location Pulse Ox 93 Oxygen Delivery Method Room Air 06/01/22 09:15 Temperature 97.7 F L Temperature Source Oral Pulse Rate 57 L Pulse Strength Respiratory Rate 16 Respiratory Effort Respiratory Depth Respiratory Pattern Blood Pressure 145/76 H Blood Pressure Mean 99 Blood Pressure Source Monitor Blood Pressure Position Sitting Blood Pressure Location Left Arm Pulse Ox 96 Oxygen Delivery Method Room Air Weight Weight: 231 lb 7.766 oz Body Mass Index (BMI) 34.2 Physical Exam Const alert, oriented x3 and no apparent distress General Appearance: cooperative, comfortable and well kempt HEENT normocephalic and head/scalp atraumatic Eyes EOMs intact bilaterally and conjunctivae normal Neck full ROM General: normal visual inspection Chest inspection of chest normal and palpation of chest normal Resp normal respiratory effort and normal air movement Effort and Inspection: able to speak in complete sentences Cardio regular rate and peripheral pulses 2+ throughout GI soft to palpation, non-tender and non-distended Back/Spine Cervical Spine: cervical ROM normal Thoracic Spine / Upper Back: normal to inspection Lumbar Spine / Lower Back: normal to inspection Extremity normal to inspection, full ROM, normal capillary refill, no clubbing, cyanosis or edema and no calf tenderness Skin no rashes or lesions noted General Skin Exam: no breakdown Neuro oriented x3, CN's II-XII intact bilaterally, moves all extremities, no focal motor deficits, no sensory deficits noted, deep tendon reflexes 2+ bilaterally and gait normal Neuro Narrative: No upper motor neuron signs Motor Exam: strength 5/5 throughout and muscle tone normal throughout Lab / Micro Data Result Diagrams: 05/31/22 05:15 05/31/22 05:15 Labs: Laboratory Results - last 24 hr 05/31/22 11:45: POC Glucose 147 H 05/31/22 16:15: POC Glucose 149 H 05/31/22 20:45: POC Glucose 286 H 06/01/22 06:22: POC Glucose 264 H Radiology Impression Brain MRI 05/31/22 09:00 IMPRESSION: Normal unenhanced MRI of the brain. Electronically Signed: Ibrahima Oconnor MD at 13:34 EDT Reading Location ID and State: [facility] / [place] , Service support , Cervical Spine MRI 05/31/22 09:00 IMPRESSION: 1. Multilevel degenerative changes, as described above. 2. Disc protrusion and broad-based is herniation at C5-C6 results in moderate compression on the left anterior aspect of the cord and moderate central canal stenosis with mild focal syrinx formation consistent with sequela of compressive myelomalacia 3. Mild to moderate central canal stenosis with mild compression anterior aspect of the cord at C6-C7 4. Moderate left foraminal stenosis with nerve root compression at C5-C6. Electronically Signed: Ibrahima Oconnor MD at 14:56 EDT , Facial/Sinus 05/31/22 13:57 IMPRESSION: Negative CT facial bones without intravenous contrast. Electronically Signed: Bacilio Wang MD at 16:25 EDT , Assessment & Plan Assessment/Plan (1) Cervical stenosis of spine: PLAN: I had a lengthy discussion with the patient. I reviewed her imaging with her. Cervical MRI dated 05/31/2022 shows cervical stenosis at the level of C5-6. The radiologist is also commented on a syrinx in the cord at this level. I did discuss this with the patient. I explained to her that I do not think her facial pain is associated with her cervical stenosis. Nor do I think her chronic diabetic neuropathy of her feet is associated. Did explain to her that the new onset of tingling in the hands and subjective weakness in the upper extremities is very likely associated with her cervical stenosis. However at this time she does not have any signs of myelopathy on physical exam. I recommend pain control and discharge home. If needed, I recommend a consult to pain management for trial of cervical epidural injections while she is inpatient. She can follow-up with me in the clinic to discuss further surgical treatment options for her neck at that time. She understands and agrees with the treatment plan.
[2022-06-01 11:41] LABS: Bedside Glucose 243 mg/dL (74-106)
--- NOTE | 2022-06-01 13:19 | DCINST_ITS ---
Discharge Instructions Diet Discharge Diet: 2000 Calorie Control Diet Dressing / Incision Call your doctor if you observe: - (Worsening facial pain. Worsening pain and extremities or weakness in extremities.) Follow Up Care Test Results: Test results from this visit will be discussed in further detail at your follow- up appointment, if applicable. Discharge Plan Admission Admit Date/Time: 05/30/22 14:26 Primary Reason for Your Visit: Facial pain. Cervical spine disc herniation Attending Provider: Joseph Alberto Primary Care Provider: Rashid Lou Consulting Providers: Mao Marin ; Bennie Campos Instructions Patient Instructions: Diabetes Food Shop Meals Prep, Diabetes Exercise Program Start, Diabetes Fitness Progress, Blood Sugar Check Steps Additional Instructions / Restrictions: Headache/Facial Pain specialist: * [facility]: [phone] * [facility]: [phone] Discharge Orders/Prescriptions Prescriptions: New carbamazepine 200 mg Tablet 200 mg PO BIDCM Qty: 60 0RF lisinopril 5 mg Tablet 5 mg PO DAILY Qty: 30 0RF oxycodone 5 mg Tablet 5 mg PO Q6H PRN (Reason: pain) 3 Days Qty: 12 0RF acetaminophen [Acetaminophen Pain Relief] 500 mg tablet 1,000 mg PO Q8H PRN PRN (Reason: pain) Qty: 30 0RF prednisone 20 mg tablet 40 mg PO DAILY Qty: 10 0RF metformin 500 mg tablet 500 mg PO DAILY Qty: 30 0RF Continued cetirizine [Zyrtec] 10 mg Tablet 10 mg PO DAILY cholecalciferol (vitamin D3) 1,250 mcg (50,000 unit) capsule 1 unit PO QWEEK Label Comments: take 1 capsule by mouth every week Other Ambulatory Orders: Glucometer (Routine) Timeframe: 1 Day Location: Determined by Patient Ordered By: Dr. Joseph Alberto Physical Therapy Evaluation (Routine) Location: None Selected Ordered By: Dr. Joseph Alberto Referrals / Follow Up: Rashid Lou DO [Primary Care Provider] - Within 2 Weeks Bennie Campos DO [Med Staff - Active Staff] - Within 3 Months Disposition Disposition (needs filled in before D/C Order can be placed): Home, Self Care
[2022-06-01 13:23] VITALS: PULSE 78
--- NOTE | 2022-06-01 13:38 | DS.PCM_ITS ---
Providers Date of Admission: 05/30/22 Primary Care Physician: Dr. Rashid Lou, DO Consultations 05/31/22 16:01 Consult: Orthopedics Routine Consulting Provider: Bennie Campos Reason for Consult: cervical disc herniation EMERGENT Consult: No MD Notified: Yes Date Notified: 05/31/22 Time Notified: 16:01 Method of Notification: Verbal Reason For Visit: HEADACHE AND NECK PAIN Diagnosis Discharge Diagnosis (1) Acute intractable headache: Status: Acute Code(s): R51.9 - Headache, unspecified Plan: Acute on chronic headache, neck pain and left hand mild weakness: Patient is being admitted to PCU. I do not think patient has signs and symptoms suggestive of CVA/TIA or stroke. Her symptoms is more related to cervical spine degenerative disc disease. MRI brain negative PT and OT ordered. Pain control with Tylenol and Motrin and morphine as per severity of pain. CTA does not show any acute intracranial bleed mass or ischemia. ESR elevated but pain is characteristic of temporal arteritis. Left spiritism is not tender and temporal artery not palpable. Her mild left hand weakness may be due to cervical neuropathy/radiculopathy. She might need EMG as an outpatient. Further work-up SOC consult if MRI Head and C-spine warrants. Chronic migraine and chronic lower extremity idiopathic neuropathy: Patient is not on acute migraine headache or migraine prophylactic medication at home. She does not take Imitrex. The symptoms in her family. 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 Recommendation for Tegretol 200 BID and follow up with [facility] at tertiary facility. (2) Cord compression: Status: Acute Code(s): G95.20 - Unspecified cord compression Plan: MRI cervical spine showed disc protrusion and broad-based herniation at C5-6 with moderate compression of the left anterior aspect of the cord and moderate central canal stenosis with mild focal syrinx formation consistent with sequelae of a compression myelomalacia.? Also noted mild to moderate central canal stenosis with mild compression anterior aspect of the cord at C6-C7.? Moderate l eft foraminal stenosis with nerve root compression at C5-C6. Discussed with Dr. Campos, who is currently out of town.? Discussed report and he recommended gabapentin 100 3 times daily as well as Decadron 4 mg IV for the next 24 hours.? He will be available to see the patient on the . Seen by Dr. Campos today and recommended pain control and outpatient follow-up. May be considered for cervical epidural injections. DC home with prednisone burst. Plan Chronic conditions: * Diabetes mellitus type 2: Glucose 154. Accu-Chek insulin coverage with Humalog sliding scale. A1c 8.2. Add metformin. Give glucometer. * Hypertension: BP elevated. Lisinopril 5 mg daily ordered. * DVT prophylaxis: Lovenox 40 subcu daily Medications at Discharge Home Medications cetirizine 10 mg tablet (Zyrtec) 10 mg PO DAILY allergies 05/30/22 cholecalciferol (vitamin D3) 1,250 mcg (50,000 unit) capsule 1 unit PO QWEEK [facility] 05/30/22 acetaminophen 500 mg tablet (Acetaminophen Pain Relief) 1,000 mg PO Q8H PRN PRN pain #30 tabs 06/01/22 carbamazepine 200 mg tablet 200 mg PO BIDCM #60 tabs 06/01/22 lisinopril 5 mg tablet 5 mg PO DAILY #30 tabs 06/01/22 metformin 500 mg tablet 500 mg PO DAILY #30 tabs 06/01/22 oxycodone 5 mg tablet 5 mg PO Q6H PRN pain 3 days #12 tabs 06/01/22 prednisone 20 mg tablet 40 mg PO DAILY #10 tabs 06/01/22 Hospital Course Operations None Procedures None Summary of Care Provided Minutes Spent on Discharge: 40 Weight / BMI Weight Weight: 105 kg Body Mass Index (BMI) 34.2 ABG / Lab / Microbiology Data Result Diagrams: 05/31/22 05:15 05/31/22 05:15 Laboratory: Laboratory Results - last 24 hr 05/31/22 16:15: POC Glucose 149 H 05/31/22 20:45: POC Glucose 286 H 06/01/22 06:22: POC Glucose 264 H 06/01/22 11:17: POC Glucose 243 H Radiography Diagnostic Testing: Radiology Impression Cervical Spine MRI 05/31/22 09:00 IMPRESSION: 1. Multilevel degenerative changes, as described above. 2. Disc protrusion and broad-based is herniation at C5-C6 results in moderate compression on the left anterior aspect of the cord and moderate central canal stenosis with mild focal syrinx formation consistent with sequela of compressive myelomalacia 3. Mild to moderate central canal stenosis with mild compression anterior aspect of the cord at C6-C7 4. Moderate left foraminal stenosis with nerve root compression at C5-C6. Electronically Signed: Ibrahima Oconnor MD at 14:56 EDT , Facial/Sinus 05/31/22 13:57 IMPRESSION: Negative CT facial bones without intravenous contrast. Electronically Signed: Bacilio Wang MD at 16:25 EDT , D/C Instructions Discharge Diet: 2000 Calorie Control Diet Call your doctor if you observe: - (Worsening facial pain. Worsening pain and extremities or weakness in extremities.) Meaningful Use Info Meaningful Use Diagnoses (Choose all that apply): None applicable Discharge Plan Admission Admit Date/Time: 05/30/22 14:26 Primary Reason for Your Visit: Facial pain. Cervical spine disc herniation Attending Provider: Joseph Alberto Primary Care Provider: Rashid Lou Consulting Providers: Mao Marin ; Bennie Campos Instructions Patient Instructions: Diabetes Food Shop Meals Prep, Diabetes Exercise Program Start, Diabetes Fitness Progress, Blood Sugar Check Steps Additional Instructions / Restrictions: Headache/Facial Pain specialist: * [facility]: [phone] * [facility]: [phone] Discharge Orders/Prescriptions Prescriptions: New carbamazepine 200 mg Tablet 200 mg PO BIDCM Qty: 60 0RF lisinopril 5 mg Tablet 5 mg PO DAILY Qty: 30 0RF oxycodone 5 mg Tablet 5 mg PO Q6H PRN (Reason: pain) 3 Days Qty: 12 0RF acetaminophen [Acetaminophen Pain Relief] 500 mg tablet 1,000 mg PO Q8H PRN PRN (Reason: pain) Qty: 30 0RF prednisone 20 mg tablet 40 mg PO DAILY Qty: 10 0RF metformin 500 mg tablet 500 mg PO DAILY Qty: 30 0RF Continued cetirizine [Zyrtec] 10 mg Tablet 10 mg PO DAILY cholecalciferol (vitamin D3) 1,250 mcg (50,000 unit) capsule 1 unit PO QWEEK Label Comments: take 1 capsule by mouth every week Other Ambulatory Orders: Glucometer (Routine) Timeframe: 1 Day Location: Determined by Patient Ordered By: Dr. Joseph Alberto Physical Therapy Evaluation (Routine) Location: None Selected Ordered By: Dr. Joseph Alberto Referrals / Follow Up: Rashid Lou DO [Primary Care Provider] - Within 2 Weeks Bennie Campos DO [Med Staff - Active Staff] - Within 3 Months Disposition Disposition (needs filled in before D/C Order can be placed): Home, Self Care Charges/Coding Visit Charges Inpatient E&M: 09909 Disch Hosp
--- NOTE | 2022-06-01 13:51 | CASEMGMT ---
Pt has been up independent in room and states no concerns with going home at time of discharge. SStwade ROJO CM
== END 2022-06-01 13:38 | disposition home or self-care (01) ==
LOC: ED 13:35 → PCU 15:11
PROVIDERS: Admitting Provider Internal Medicine; Emergency Provider Emergency Medicine; PCP Family Medicine
DX: M48.02 Spinal stenosis, cervical region (principal); G95.20 Unspecified cord compression; E11.42 Type 2 diabetes mellitus with diabetic polyneuropathy; E11.610 Type 2 diabetes mellitus with diabetic neuropathic arthropathy; R51.9 Headache, unspecified; F17.210 Nicotine dependence, cigarettes, uncomplicated; R53.1 Weakness; I10 Essential (primary) hypertension; Z79.899 Other long term (current) drug therapy; Z86.73 Personal history of transient ischemic attack (TIA), and cerebral infarction without residual deficits; G60.9 Hereditary and idiopathic neuropathy, unspecified; M50.10 Cervical disc disorder with radiculopathy, unspecified cervical region
CPT/HCPCS: 70486; 70496; 70498; 70551; 72141; 80048; 82962; 83036; 83735; 84443; 85025; 85652; 96361; 96372; 96374; 96375; 96376; 99218; 99251; 99282; J7030; J7120; Q9967; A4216; G0378; G0463; J2405

== ENCOUNTER 2024-05-01 16:39 | Emergency (ER) | payer MEDICAID, SELFPAY ==
[2024-05-01 16:40] VITALS: BP 195/88; PULSE 93; RESP 18; TEMP 36.4; O2SAT 97; BMI 34.4
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
[2024-05-01 17:37] VITALS: BP 125/70; PULSE 64; RESP 20; O2SAT 99
--- NOTE | 2024-05-01 18:37 | CT_ITS ---
STUDY: CT BRAIN WITHOUT CONTRAST REASON FOR EXAM: Female, 53 years old. Headache RADIATION DOSAGE (If Supplied By Facility): CTDIvol = ( 44.99 ) mGy, DLP = ( 812.98 ) mGycm TECHNIQUE: Transaxial CT imaging of the brain was performed without administration of intravenous contrast material. Individualized dose optimization techniques were used for this CT. COMPARISON: No relevant priors. FINDINGS: Normal soft tissue structures. Normal calvarium. Normal size ventricles and extra-axial spaces for the patient''s age. Normal white matter tracts of the cerebral hemispheres. Normal basal ganglia and thalami. Normal brainstem. Normal cerebellum. There is no intracranial hemorrhage. There are no findings of an acute ischemic infarction. Normal visualized paranasal sinuses. CT/Brain/Head without Contrast IMPRESSION: Normal unenhanced CT scan of the brain. Electronically Signed: Melquiades Ospina MD at 19:29 EDT ,
[2024-05-01] MEDS: Metoclopramide 5 MG TABLET PO (18:48)
== END 2024-05-01 20:59 | disposition home or self-care (01) ==
PROVIDERS: Emergency Provider Emergency Medicine; PCP Family Medicine; Visit Provider Emergency Medicine
DX: S06.0X0A Concussion without loss of consciousness, initial encounter (principal); F17.210 Nicotine dependence, cigarettes, uncomplicated; Z86.73 Personal history of transient ischemic attack (TIA), and cerebral infarction without residual deficits; V89.2XXA Person injured in unspecified motor-vehicle accident, traffic, initial encounter
CPT/HCPCS: 70450; 99282

== ENCOUNTER 2024-09-20 17:45 | Inpatient (IN) | payer MEDICAID, SELFPAY ==
[2024-09-20] VITALS (9 sets, daily range): BP systolic 100–171; BP diastolic 73–96; PULSE 69–92; RESP 14–20; TEMP 36.6–36.8; O2SAT 92–99; BMI 35.7; BMI 35.1
--- NOTE | 2024-09-20 19:28 | EX.ED.DYSGE1 ---
HPI History of Present Illness Chief Complaint: Wound Check [facility] Medical History (Updated 09/20/24 @ 23:[address] Sujey Gudino DO) Diabetes mellitus, type 2 Cervical disc herniation Migraine Chronic neck pain Nerve pain TIA (transient ischemic attack) Home Medications ?Medication ?Instructions ?Recorded ?Last Taken ?Type cetirizine 10 mg tablet (Zyrtec) 10 mg PO DAILY allergies 05/30/22 05/29/22 21:00 History cholecalciferol (vitamin D3) 1,250 1 unit PO QWEEK [facility] 05/30/22 05/26/22 History mcg (50,000 unit) capsule acetaminophen 500 mg tablet 1,000 mg (2 x 500 mg) PO Q8H PRN 06/01/22 Unknown Rx (Acetaminophen Pain Relief) PRN pain #30 tabs duloxetine 60 mg capsule,delayed 60 mg PO DAILY 05/01/24 Unknown History release empagliflozin 10 mg tablet 25 mg PO DAILY 05/01/24 Unknown History (Jardiance) tizanidine 4 mg tablet 2 - 4 mg PO TID PRN PRN muscle 05/01/24 Unknown History spasticity carbamazepine 200 mg tablet 200 mg PO 12 TRIGEMINAL NEURALGIA 09/21/24 Unknown History carbamazepine 200 mg tablet 400 mg PO BID TRIGEMINAL NEURALGIA 09/21/24 Unknown History Allergy/AdvReac Type Severity Reaction Status Date / Time cyclobenzaprine (From Allergy Other Verified 09/20/24 17:46 Flexeril) metaxalone (From Skelaxin) Allergy Itching Verified 09/20/24 17:46 moxifloxacin (From Avelox) Allergy Other Verified 09/20/24 17:46 pregabalin (From Lyrica) Allergy Other Verified 09/20/24 17:46 Family History (Updated 09/20/24 @ 23:[address] Sujey Gudino DO) Other Diabetes Hypertension Surgical History Hx of laparoscopy History of laparoscopic cholecystectomy Social History (Updated 09/20/24 @ 23:[address] Sujey Gudino DO) housing: house Smoking Status: Current every day smoker tobacco type: cigarettes alcohol intake: current alcohol intake frequency: a few times a month substance use type: does not use EXAM Physical Exam Const Vital Signs: 09/20/24 17:46 09/20/24 19:31 09/20/24 19:45 Temperature 98.3 F 98.1 F Temperature Source Oral Oral Pulse Rate 92 80 80 Respiratory Rate 16 16 16 Blood Pressure 171/79 H 155/73 H 146/79 H Blood Pressure Mean 109 100 101 Pulse Ox 97 95 94 Oxygen Delivery Method Room Air Room Air Room Air 09/20/24 20:00 09/20/24 21:00 09/20/24 21:59 Temperature 98.1 F 98.1 F 98.1 F Temperature Source Oral Oral Oral Pulse Rate 83 85 77 Respiratory Rate 20 H 18 18 Blood Pressure 141/75 H 131/73 H 146/82 H Blood Pressure Mean 97 92 103 Pulse Ox 93 96 92 Oxygen Delivery Method Room Air Room Air Room Air 09/20/24 22:07 Temperature 98.1 F Temperature Source Pulse Rate 71 Respiratory Rate 14 Blood Pressure 162/86 H Blood Pressure Mean 111 Pulse Ox 93 Oxygen Delivery Method MDM MDM MDM Narrative Medical decision making narrative: HISTORY OF PRESENT ILLNESS: 53-year-old female presents with left lower extremity wound. Notes there is bone exposure. No she saw doctor of podiatry told her to come to the emergency department. REVIEW OF SYSTEMS: Pertinent positives: Left foot wound Pertinent negatives: Fever, vomiting PHYSICAL EXAM: Nursing triage notes reviewed, Vital signs reviewed Constitutional: please see mdm HENT: MMM Eyes: Pupils equal round and reactive to light, Extraocular muscles intact Neck: No stridor, no JVD, full neck ROM Lungs: Clear to auscultation, No wheezing or rales. No increased work of breathing, no conversational dyspnea, no accessory muscle use, no nasal flaring. No respiratory distress noted Heart: Regular rate and rhythm, No murmurs, No rubs and No gallops, 2+ distal pulses (radial, femoral, posterior tibial) in all extremities Abdomen: Soft, there is no tenderness, rigidity, rebound or guarding, no obvious peritoneal signs, no palpable pulsatile abdominal masses, no auscultated abdominal bruit : No CVAT Extremities: No edema, bilateral feet are warm and well-perfused. Neuro: Intact sensation L1-S1 dermatomal distributions. Intact 5/5 strength in hip flexion (T12-L3). Knee extension (L2-L4). Ankle dorsiflexion (L4-L5). Ankle plantar flexion (S1). Great toe extension (L5). 2+ patellar and Achilles DTRs. Skin: Slight edema, erythema noted to the left third digit, there is tissue destruction, a ring of erythema and yellow discharge, there is no crepitus or bullae, there is obvious bone exposure. MEDICAL DECISION MAKING: Chief Complaint: Left foot wound External records reviewed: Reviewed prior inpatient records Factors affecting care: Type 2 diabetes Social determinants of health: none History obtained from others: none Consults: Internal medicine (Dr. Gudino) MDM Narrative: Patient was initially hemodynamically stable, afebrile and nontoxic-appearing. Exam with concern for left third toe infection versus osteomyelitis with swelling, yellow discharge. I considered the following differential diagnosis: Osteomyelitis, diabetic foot infection I obtained a broad lab and imaging workup to further elucidate etiology the patient complaints ALL IMAGES (IF OBTAINED) HAVE BEEN PERSONALLY REVIEWED AND INTERPRETED BY MYSELF. X-ray of left toes was read, interpreted and reviewed personally by myself showed evidence of left third toe osteomyelitis Inflammatory markers elevated CBC leukocytosis suggestive of systemic inflammation, no anemia BMP without evidence of significant electrolyte abnormalities, no anion gap, no acute kidney injury. The synthesis of the patient's history, physical exam, labs images suggest severe systemic elevation likely secondary to osteomyelitis. Gave broad-spectrum antibiotics and for vancomycin and Zosyn admit the patient to the floor to undergo podiatry consultation discussed with Dr. Gudino. The patient and/or family, caregivers express understanding. The patient and/or family, caregivers agrees with the plan. Shared decision making: I will have a discussion with the patient and or visitors regarding risk/benefits of further testing or admission. They will be made aware of of the risk/benefits inherent in this decision they will be given the opportunity to voice understanding. Total critical care time today provided was at least 0 minutes. This excludes separately billable procedures. Critical care time (if documented) is secondary to the patient having high probability of clinically significant/life threatening deterioration in the patient's condition which required my urgent intervention. Impression: 1. Acute osteomyelitis 2. History of diabetes Dispo: admit to med/surg full This note was generated with [employer] dictation software. It may contain incorrect words, spelling, and punctuation that were not noted in review of the chart prior to signing. Lab Data Labs: Laboratory Results - last 24 hr 09/20/24 19:47 WBC 11.9 H RBC 5.39 Hgb 16.6 H Hct 50.3 H MCV 93.3 MCH 30.8 MCHC 33.0 RDW Std Deviation 45.4 H RDW Coeff of Michael 13.2 Plt Count 195 MPV 9.6 ESR 43 H Sodium 136 Potassium 3.9 Chloride 101 Carbon Dioxide 28.0 Anion Gap 6 BUN 14 Creatinine 0.69 Estim Creat Clear Calc 123.05 Est GFR (MDRD) Af Amer 114 Est GFR (MDRD) Non-Af 94 BUN/Creatinine Ratio 20.4 H Glucose 172 H Calcium 9.3 C-React Prot Ext Range 38.40 H Radiography Diagnostic Testing: Clinical Impression(s) from Imaging Studies Toe X-Ray 09/20/24 19:48 IMPRESSION: Soft tissue swelling of the third digit. Underlying lucency, loss of clearly defined margins, and decreased size of the third phalangeal tuft. This may be reactive bone change or osteomyelitis. Osteomyelitis is favored. Electronically Signed: Sana Sanchez MD at 21:47 EST , Discharge Plan Disposition Disposition: Acute Care Hospital [facility] Discharge Date/Time: 09/20/24 23:21
--- NOTE | 2024-09-20 19:48 | EKG12_ITS ---
Test Reason : DYSRHYTHMIA Blood Pressure : */* mmHG Vent. Rate : 78 BPM Atrial Rate : 78 BPM P-R Int : 140 ms QRS Dur : 86 ms QT Int : 370 ms P-R-T Axes : 55 6 36 degrees QTcB Int : 421 ms Normal sinus rhythm Normal ECG Confirmed by ROCAEL LANDERS, TOY ([id number]), editorial cartoonist IGNACIO BARDALES ([id number]) on 09/21/2024 8:26:57 AM Referred By: Confirmed By: TOY COTE MD
--- NOTE | 2024-09-20 19:48 | RAD_ITS ---
EXAM: XR LEFT TOES, 2 OR MORE VIEWS CLINICAL INDICATION: 3rd digit infection TECHNIQUE: Frontal, lateral and oblique views of the toes of the left foot. COMPARISON: No relevant prior studies available. FINDINGS: BONES/JOINTS: Increased lucency loss sharp margins of the third phalangeal tuft with narrow and mild sclerotic phalangeal waist. The the tip of the tuft is sharp and narrowed on lateral view. No acute fracture. No dislocation. SOFT TISSUES: Soft tissue swelling of the third digit. No radiopaque foreign body. RAD/Toe(s) Min 2 Views IMPRESSION: Soft tissue swelling of the third digit. Underlying lucency, loss of clearly defined margins, and decreased size of the third phalangeal tuft. This may be reactive bone change or osteomyelitis. Osteomyelitis is favored. Electronically Signed: Sana Sanchez MD at 21:47 EST ,
[2024-09-20 20:09] LABS: Anion Gap 6 (5-15); BUN 14 mg/dL (7-18); BUN/Creat Ratio 20.4 RATIO (10-20); Calcium,Total 9.3 mg/dL (8.5-10.1); Chloride 101 mmol/L (98-107); Creatinine, Serum 0.69 mg/dL (0.55-1.02); EST Glomerular Filtration Rate 94 mL/min (>60); Est Glom Filt Rate - Afr Amer 114 mL/min (>60); Estimated Creatinine Clearance 123.05 ml/min; Glucose 172 mg/dL (74-106); Potassium 3.9 mmol/L (3.5-5.1); Sodium Level 136 mmol/L (136-145)
[2024-09-20 20:11] LABS: Hematocrit 50.3 % (37-47); Hemoglobin 16.6 g/dL (12.0-15.0); Mean Corpuscular Hgb 30.8 pg (27.0-32.0); Mean Corpuscular Volume 93.3 fL (81-99); Mean Platelet Vol. 9.6 fl (6.2-12.0); Platelet Count 195 K/mm3 (150-450); RBC Distribution Width CV 13.2 % (11.6-14.6); RBC Distribution Width SD 45.4 fl (35.1-43.9); Red Blood Count 5.39 M/mm3 (4.2-5.4); Scan Indicated on CBC? Y/N NO; White Blood Count 11.9 K/mm3 (4.4-11.0)
[2024-09-20 20:12] LABS: POSITIVE COUNT NO; POSITIVE DIFFERENTIAL NO; POSITIVE MORPHOLOGY NO
[2024-09-20 20:21] LABS: Erythrocyte Sedimentation Rate 43 mm/hr (0-30)
[2024-09-20] MEDS: Piperacil/Tazobactam 4.5 GM in 0.9% Normal Saline (100mL MB+) 100 ML IV (22:06)
--- NOTE | 2024-09-20 22:21 | PCM.HP.STD ---
HPI - General General Date of Admission: 09/20/24 Date of Service: 09/20/24 Chief Complaint: Diabetic foot wound HPI Narrative DESTIN KRUSE, is a 53 F who presented to the emergency department at [facility] on 09/20/2023 at the instruction of Dr. Hernandez due to an ongoing issue with a diabetic foot wound on the third digit of her left foot. She states she has a hammertoe on that foot and it has been a problem for a few months now. She has been following with podiatry and unfortunately the wound has progressed to the point where it is to the bone now. He evaluated today and structure, the emergency department for further care. He does not come here so we advised to follow-up with podiatry with whoever is on-call for no doc. She admits to having neuropathy but does have some sensation in her foot has intermittent pain. She stated that the swelling in her foot and the erythema in her foot started today at about 1400 and is fairly rapidly progressing. She denies any fever chills or other somatic symptoms at this time. Patient does admit that she is an everyday smoker. Vital signs on presentation showed temperature of 98.3, heart rate 92, respiratory 16, initial blood pressure was 171/79, pulse ox was 97% on room air. CBC shows a mild leukocytosis with a white count of 11.9. ESR was 43. Chemistry panel was overtly unremarkable other than a glucose of 172. CRP was 38.4. X-ray of the foot showed soft tissue swelling of the third digit and underlying lucency, loss of clearly defined margins and decreased size of the third phalangeal tuft consistent with reactive bone changes versus osteomyelitis however osteomyelitis was favored. She was started on broad-spectrum antibiotics with vancomycin and Zosyn. [facility] Medical History (Updated 09/20/24 @ 23:[address] Sujey Gudino, DO) Diabetes mellitus, type 2 Cervical disc herniation Migraine Chronic neck pain Nerve pain TIA (transient ischemic attack) Home Medications ?Medication ?Instructions ?Recorded ?Last Taken ?Type cetirizine 10 mg tablet (Zyrtec) 10 mg PO DAILY allergies 05/30/22 05/29/22 21:00 History cholecalciferol (vitamin D3) 1,250 1 unit PO [facility], [facility] 09/11/22 09/07/22 History mcg (50,000 unit) capsule acetaminophen 500 mg tablet 1,000 mg (2 x 500 mg) PO Q8H PRN 06/01/22 Unknown Rx (Acetaminophen Pain Relief) PRN pain #30 tabs carbamazepine 200 mg tablet 200 mg PO BIDCM #60 tabs 06/01/22 Unknown Rx duloxetine 60 mg capsule,delayed 60 mg PO DAILY 05/01/24 Unknown History release empagliflozin 10 mg tablet 25 mg PO DAILY 05/01/24 Unknown History (Jardiance) tizanidine 4 mg tablet 2 - 4 mg PO TID PRN PRN muscle 05/01/24 Unknown History spasticity Allergy/AdvReac Type Severity Reaction Status Date / Time cyclobenzaprine (From Allergy Other Verified 09/20/24 17:46 Flexeril) metaxalone (From Skelaxin) Allergy Itching Verified 09/20/24 17:46 moxifloxacin (From Avelox) Allergy Other Verified 09/20/24 17:46 pregabalin (From Lyrica) Allergy Other Verified 09/20/24 17:46 Family History (Updated 09/20/24 @ 23:[address] Sujey Gudino DO) Other Diabetes Hypertension Surgical History Hx of laparoscopy History of laparoscopic cholecystectomy Social History (Updated 09/20/24 @ 23:[address] Sujey Gudino DO) housing: house Smoking Status: Current every day smoker tobacco type: cigarettes alcohol intake: current alcohol intake frequency: a few times a month substance use type: does not use ROS Constitutional Constitutional: Denies anorexia, change in weight, chills, fatigue, fever(s), malaise, night sweats, weakness or other Eyes Eyes: Denies blurry vision, change in eye color, change in vision, discharge from eye(s), double vision, erythema, eye pain, loss of vision or other ENT HEENT: Denies abnormal hearing, dysphagia, ear pain, epistaxis, headache(s), hearing loss, nasal congestion, nasal discharge, post nasal drip, sinus pressure, sore throat or other Cardiovascular Cardiovascular: Denies chest pain, claudication, dyspnea on exertion, edema, lightheadedness, orthopnea, palpitations, paroxysmal nocturnal dyspnea, rapid heart rate, syncope or other Respiratory/Chest Respiratory/Chest: Denies cough, dyspnea, excessive phlegm production, hemoptysis, productive cough, shortness of breath at rest, shortness of breath with exertion, wheezing or other Gastrointestinal Gastrointestinal: Denies abdominal pain, coffee ground emesis, constipation, diarrhea, dyspepsia, hematemesis, hematochezia, loose stools, melena, nausea, vomiting or other Genitourinary Genitourinary: Denies burning urination, difficulty urinating, dysuria, hematuria, nocturia, urinary frequency, urinary hesitancy, urinary incontinence, urinary urgency or other Musculoskeletal Musculoskeletal: Reports other Details: Left foot pain Integumentary Integumentary: Reports wounds; Denies dry skin, jaundice, new lesions, pruritus or rash Neurologic Neurologic: Reports paresthesias RLE and LLE Psychiatric Psychiatric: Denies anxiety, depression, homicidal ideation, suicidal ideation or other Endocrine Endocrinology: Denies change in body appearance, cold intolerance, excessive sweating, heat intolerance, polydipsia, polyuria or other Hematologic/Lymphatic Hematologic/Lymphatic: Denies anemia, easy bleeding, easy bruising, lymphadenopathy or other Allergic/Immunologic Allergic/Immunologic: Denies rhinitis, hives, eczemia, asthma or other Vital Signs Vital Signs Vital Signs: 09/20/24 17:46 09/20/24 19:31 09/20/24 19:45 Temperature 98.3 F 98.1 F Temperature Source Oral Oral Pulse Rate 92 80 80 Respiratory Rate 16 16 16 Blood Pressure 171/79 H 155/73 H 146/79 H Blood Pressure Mean 109 100 101 Pulse Ox 97 95 94 Oxygen Delivery Method Room Air Room Air Room Air 09/20/24 20:00 09/20/24 21:00 09/20/24 21:59 Temperature 98.1 F 98.1 F 98.1 F Temperature Source Oral Oral Oral Pulse Rate 83 85 77 Respiratory Rate 20 H 18 18 Blood Pressure 141/75 H 131/73 H 146/82 H Blood Pressure Mean 97 92 103 Pulse Ox 93 96 92 Oxygen Delivery Method Room Air Room Air Room Air 09/20/24 22:07 Temperature 98.1 F Temperature Source Pulse Rate 71 Respiratory Rate 14 Blood Pressure 162/86 H Blood Pressure Mean 111 Pulse Ox 93 Oxygen Delivery Method Weight Weight: 109.769 kg Body Mass Index (BMI) 35.7 Physical Exam Const alert, oriented x3, no apparent distress, healthy appearing and well nourished; Negative for average body habitus Constitutional Narrative: Obese, middle-aged, white female, sitting up in bed, appears comfortable, nontoxic, family at bedside General Appearance: cooperative HEENT normocephalic, head/scalp atraumatic, hearing grossly normal bilaterally and moist oral mucous membranes HEENT Narrative: Mallampati 2-3, no thrush Neck supple Neck Narrative: Trachea midline, neck is short and thick, no thyroid enlargement noted Resp normal respiratory effort, no retractions, no use of accessory muscles and No clear to auscultation bilaterally Resp Narrative: Few scattered end expiratory wheezes that clear with cough, diminished diffusely Auscultation: wheezes; Negative for rales or rhonchi Cardio regular rate, regular rhythm, S1 normal heart sound, S2 normal heart sound, no murmurs, no rub, no gallops and no clicks GI normal to inspection, nondistended, normoactive bowel sounds, soft to palpation and non-tender Extremity Extremity Narrative: Edema left lower extremity predominantly at the foot with no clubbing or cyanosis Skin No no wounds, skin turgor normal, no jaundice, no petechiae and no mottling Skin Narrative: Patient with ulceration at the distal tip of the third digit on the left foot with edema, erythema up to the midfoot and tenderness, tissue temperature is increased in this area with no other significant lesions noted Neuro oriented x3, moves all extremities and no focal motor deficits Neuro Narrative: Decree sensation bilateral feet Speech: speech normal Psych affect normal Psych Narrative: Very pleasant, interacts appropriately Results Lab / Micro Data 09/20/24 19:47 09/20/24 19:47 Labs: Laboratory Results - last 24 hr 09/20/24 19:47: WBC 11.9 H, RBC 5.39, Hgb 16.6 H, Hct 50.3 H, MCV 93.3, MCH 30.8, MCHC 33.0, RDW Std Deviation 45.4 H, RDW Coeff of Michael 13.2, Plt Count 195, MPV 9.6, ESR 43 H, Sodium 136, Potassium 3.9, Chloride 101, Carbon Dioxide 28.0, Anion Gap 6, BUN 14, Creatinine 0.69, Estim Creat Clear Calc 123.05, Est GFR (MDRD) Af Amer 114, Est GFR (MDRD) Non-Af 94, BUN/Creatinine Ratio 20.4 H, Glucose 172 H, Calcium 9.3, C-React Prot Ext Range 38.40 H Imaging Radiology Impression Toe X-Ray 09/20/24 19:48 IMPRESSION: Soft tissue swelling of the third digit. Underlying lucency, loss of clearly defined margins, and decreased size of the third phalangeal tuft. This may be reactive bone change or osteomyelitis. Osteomyelitis is favored. Electronically Signed: Sana Sanchez MD at 21:47 EST , Assessment & Plan Assessment/Plan (1) Diabetic foot ulcer: (2) Osteomyelitis: (3) Leukocytosis: PLAN: Plan Diabetic foot ulcer of the third digit on the left foot with underlying osteomyelitis -Wound cultures -Antibiotics with vancomycin and Zosyn as she is high risk for community-acquired MRSA and Pseudomonas given her diabetes history -Check MRI of foot -Nonweightbearing for now -As needed Tylenol and oxycodone available for pain -Consult podiatry--> Dr. Marsh and notified Leukocytosis -Likely related to the above -Will trend DM-2 -Control is unclear -Continue home Jardiance -SSI with Accu-Cheks -Carb controlled diet with 1800 kcal -Check hemoglobin A1c History of migraines -Patient is not on any abortive medication -As needed Tylenol available Diabetic neuropathy -Patient does have diabetic neuropathy but does not appear to have significant neuropathic pain -Continue Tegretol Seasonal allergies -Continue home Zyrtec Chronic neck pain -Hold home tizanidine for now -As needed pain medication available -Continue duloxetine Tobacco abuse -Recommend cessation -Nicotine patch available if needed DVT prophylaxis -Subcu Lovenox daily CODE STATUS -Full code as verified on admission Charges/Coding Visit Charges Inpatient E&M: 49646 Init Hosp L2
[2024-09-20] MEDS: Vancomycin HCl 1,750 MG in 0.9% Normal Saline (500mL Bag) 500 ML 250 MG IV (23:11)
[2024-09-21] VITALS (11 sets, daily range): BP systolic 130–154; BP diastolic 70–77; PULSE 69–78; RESP 16–18; TEMP 36.1–37.1; O2SAT 95–100; BMI 35.1
--- NOTE | 2024-09-21 00:17 | PCM.RX.CS ---
Consult Antibiotic Management Pharmacy has been consulted to manage selected antibiotic: Vancomycin Type of Intervention Type of Consult: New start Suspected Infection Suspected Infection: Osteomyelitis Labs Labs: Sodium 136 mmol/L (136-145) 09/20/24 19:47 Potassium 3.9 mmol/L (3.5-5.1) 09/20/24 19:47 Chloride 101 mmol/L (98-107) 09/20/24 19:47 Carbon Dioxide 28.0 mmol/L (21.0-32.0) 09/20/24 19:47 Anion Gap 6 (5-15) 09/20/24 19:47 BUN 14 mg/dL (7-18) 09/20/24 19:47 Creatinine 0.69 mg/dL (0.55-1.02) 09/20/24 19:47 Est GFR (MDRD) Af Amer 114 mL/min (>60) 09/20/24 19:47 Est GFR (MDRD) Non-Af 94 mL/min (>60) 09/20/24 19:47 BUN/Creatinine Ratio 20.4 RATIO (10-20) H 09/20/24 19:47 Glucose 172 mg/dL (74-106) H 09/20/24 19:47 Dosing Weight Weight used for dosin kg Estimated Creatinine Clearance Estimated Creatinine Clearance: 123 Goal Trough Goal Trough: 15-20 mcg/mL Pharmacy Plan for Drug Dosing Pharmacy Plan for Drug Dosing: Pharmacy Service will continue to monitor and adjust dosing as required. Follow-Up Labs Follow-Up Labs: Trough: Vancomycin Date/Time Labs Ordered Labs to be done on [date and time ordered]: 09/21/24 @3755
[2024-09-21] MEDS: Acetaminophen 500 MG Tablet 1000 MG PO ×3 (00:34→21:26)
[2024-09-21] MEDS: 0.9% Saline Lock 10 ML Syringe IV ×2 (05:44→13:25)
[2024-09-21] MEDS: Piperacil/Tazobactam 3.375 GM in 0.9% Normal Saline (50mL MB+) 50 ML IV ×3 (05:44→21:27)
[2024-09-21] MEDS: Insulin Lispro 100 UNIT/ML INSULN.PEN SC ×2 (05:52→16:39)
[2024-09-21] MEDS: Vancomycin HCl 1,250 MG in 0.9% Normal Saline (250mL Bag) 250 ML 167 MG IV ×2 (06:14→15:17)
[2024-09-21 06:28] LABS: Bedside Glucose 190 mg/dL (74-106)
[2024-09-21 06:49] LABS: Absolute Lymphocyte Count 1.84 X10^3/uL (0.83-4.51); Basophil# 0.03 X10^3/uL; Basophil% 0.3 % (0-1); Eosinophil# 0.15 X10^3/uL; Eosinophils% 1.7 % (0-5); Hematocrit 47.8 % (37-47); Hemoglobin 15.7 g/dL (12.0-15.0); Lymphocyte # 1.84 X10^3/ul (0.83-4.51); Lymphocyte % 21.1 % (19-41); Mean Corp Hgb Conc 32.8 g/dL (32-36); Mean Corpuscular Volume 94.5 fL (81-99); Mean Platelet Vol. 9.8 fl (6.2-12.0); Monocyte# 0.62 X10^3/uL; Monocyte% 7.1 % (0-10); NRBC Flagged by Analyzer 0 % (0-5); Neutrophil # 6.04 X10^3/uL (2.7-7.7); Neutrophil % 69.5 % (47-70); Platelet Count 177 K/mm3 (150-450); RBC Distribution Width CV 13.2 % (11.6-14.6); RBC Distribution Width SD 45.6 fl (35.1-43.9); Red Blood Count 5.06 M/mm3 (4.2-5.4); White Blood Count 8.7 K/mm3 (4.4-11.0)
[2024-09-21 07:11] LABS: ALB/GLOB Ratio 0.8 RATIO (0.9-2.4); AST(SGOT) 9 U/L (15-37); Alanine Aminotransfer ALT/SGPT 20 U/L (13-56); Alkaline Phosphatase 125 U/L (45-117); Anion Gap 8 (5-15); BUN 9 mg/dL (7-18); BUN/Creat Ratio 16.3 RATIO (10-20); Chloride 106 mmol/L (98-107); Creatinine, Serum 0.55 mg/dL (0.55-1.02); EST Glomerular Filtration Rate 122 mL/min (>60); Est Glom Filt Rate - Afr Amer 147 mL/min (>60); Estimated Creatinine Clearance 153.03 ml/min; Glucose 153 mg/dL (74-106); Magnesium 2.2 mg/dL (1.6-2.6); Phosphorus 4.3 mg/dL (2.5-4.9); Potassium 3.8 mmol/L (3.5-5.1); Sodium Level 137 mmol/L (136-145)
[2024-09-21] MEDS: carBAMazepine 200 MG Tablet 400 MG PO ×2 (08:03→21:27)
--- NOTE | 2024-09-21 08:15 | HP.PCM_ITS ---
HPI - General General Date of Admission: 09/20/24 Chief Complaint: Diabetic foot wound HPI Narrative DESTIN KRUSE, is a 53 F who presents chronic ulceration to left third toe. Patient denies constitutional symptoms. Patient sent here by her podiatric physician Dr. Hernandez for concern of nonhealing ulceration of left third toe and underlying osteomyelitis. Patient failed conservative treatment outpatient has history of poorly controlled diabetes with history of Charcot foot right lower extremity. No other complaints [facility] Medical History (Updated 09/21/24 @ 08:[address] Scotty Marsh, [place]) Diabetes mellitus, type 2 Cervical disc herniation Migraine Chronic neck pain Nerve pain TIA (transient ischemic attack) Home Medications ?Medication ?Instructions ?Recorded ?Last Taken ?Type cetirizine 10 mg tablet (Zyrtec) 10 mg PO DAILY allergies 05/30/22 05/29/22 21:00 History cholecalciferol (vitamin D3) 1,250 1 unit PO [facility]WEEK [facility] 05/30/22 05/26/22 History mcg (50,000 unit) capsule acetaminophen 500 mg tablet 1,000 mg (2 x 500 mg) PO Q8H PRN 06/01/22 Unknown Rx (Acetaminophen Pain Relief) PRN pain #30 tabs duloxetine 60 mg capsule,delayed 60 mg PO DAILY 05/01/24 Unknown History release empagliflozin 10 mg tablet 25 mg PO DAILY 05/01/24 Unknown History (Jardiance) tizanidine 4 mg tablet 2 - 4 mg PO TID PRN PRN muscle 05/01/24 Unknown History spasticity carbamazepine 200 mg tablet 200 mg PO 12 TRIGEMINAL NEURALGIA 09/21/24 Unknown History carbamazepine 200 mg tablet 400 mg PO BID TRIGEMINAL NEURALGIA 09/21/24 Unknown History Allergy/AdvReac Type Severity Reaction Status Date / Time cyclobenzaprine (From Allergy Other Verified 09/20/24 17:46 Flexeril) metaxalone (From Skelaxin) Allergy Itching Verified 09/20/24 17:46 moxifloxacin (From Avelox) Allergy Other Verified 09/20/24 17:46 pregabalin (From Lyrica) Allergy Other Verified 09/20/24 17:46 Family History (Updated 09/20/24 @ 23:[address] Sujey Gudino DO) Other Diabetes Hypertension Surgical History Hx of laparoscopy History of laparoscopic cholecystectomy Social History (Updated 09/20/24 @ 23:[address] Sujey Gudino DO) housing: house Smoking Status: Current every day smoker tobacco type: cigarettes alcohol intake: current alcohol intake frequency: a few times a month substance use type: does not use Vital Signs Vital Signs Vital Signs: 09/20/24 17:46 09/20/24 19:31 09/20/24 19:45 Temperature 98.3 F 98.1 F Temperature Source Oral Oral Pulse Rate 92 80 80 Respiratory Rate 16 16 16 Respiratory Effort Respiratory Depth Respiratory Pattern Blood Pressure 171/79 H 155/73 H 146/79 H Blood Pressure Mean 109 100 101 Blood Pressure Source Blood Pressure Position Blood Pressure Location Pulse Ox 97 95 94 Oxygen Delivery Method Room Air Room Air Room Air 09/20/24 20:00 09/20/24 21:00 09/20/24 21:59 Temperature 98.1 F 98.1 F 98.1 F Temperature Source Oral Oral Oral Pulse Rate 83 85 77 Respiratory Rate 20 H 18 18 Respiratory Effort Respiratory Depth Respiratory Pattern Blood Pressure 141/75 H 131/73 H 146/82 H Blood Pressure Mean 97 92 103 Blood Pressure Source Blood Pressure Position Blood Pressure Location Pulse Ox 93 96 92 Oxygen Delivery Method Room Air Room Air Room Air 09/20/24 22:07 09/20/24 23:00 09/20/24 23:30 Temperature 98.1 F 98.1 F 97.9 F Temperature Source Oral Oral Pulse Rate 71 76 69 Respiratory Rate 14 14 16 Respiratory Effort Respiratory Depth Respiratory Pattern Blood Pressure 162/86 H 100/86 H 160/96 H Blood Pressure Mean 111 90 117 Blood Pressure Source Monitor Blood Pressure Position Semi-Fowlers Blood Pressure Location Right Arm Pulse Ox 93 96 99 Oxygen Delivery Method Room Air Room Air 09/20/24 23:30 09/21/24 05:25 09/21/24 08:03 Temperature 98 F Temperature Source Temporal Pulse Rate 78 Respiratory Rate 16 Respiratory Effort Normal Non-Labored Respiratory Depth Normal Respiratory Pattern Normal Blood Pressure 153/75 H Blood Pressure Mean 101 Blood Pressure Source Monitor Blood Pressure Position Semi-Fowlers Blood Pressure Location Right Arm Pulse Ox 100 Oxygen Delivery Method Room Air Room Air Room Air Weight Weight: 107.955 kg Body Mass Index (BMI) 35.1 Physical Exam Narrative Vascular: Dorsalis pedis posterior tibial pulses palpable 2 out of 4 bilateral lower extremity compartments. Capillary fill time brisk to all toes bilaterally. Digital hair growth noted bilaterally. Neurologic: Light touch protective sensation absent to bilateral feet. Dermatologic: Full-thickness ulceration distal tuft of left third toe extends down to level of distal phalanx. Periwound erythema edema and warmth noted. Scant serosanguineous drainage noted. Malodor noted. Musculoskeletal: Hammertoe deformity to left third toe contributing to wound formation to the distal tuft. Results Lab / Micro Data 09/21/24 06:08 09/21/24 06:08 Labs: Laboratory Results - last 24 hr 09/20/24 19:47: WBC 11.9 H, RBC 5.39, Hgb 16.6 H, Hct 50.3 H, MCV 93.3, MCH 30.8, MCHC 33.0, RDW Std Deviation 45.4 H, RDW Coeff of Michael 13.2, Plt Count 195, MPV 9.6, ESR 43 H, Sodium 136, Potassium 3.9, Chloride 101, Carbon Dioxide 28.0, Anion Gap 6, BUN 14, Creatinine 0.69, Estim Creat Clear Calc 123.05, Est GFR (MDRD) Af Amer 114, Est GFR (MDRD) Non-Af 94, BUN/Creatinine Ratio 20.4 H, G lucose 172 H, Calcium 9.3, C-React Prot Ext Range 38.40 H 09/21/24 05:47: POC Glucose 190 H 09/21/24 06:08: WBC 8.7, RBC 5.06, Hgb 15.7 H, Hct 47.8 H, MCV 94.5, MCH 31.0, MCHC 32.8, RDW Std Deviation 45.6 H, RDW Coeff of Michael 13.2, Plt Count 177, MPV 9.8, Immature Gran % (Auto) 0.300, Neut % (Auto) 69.5, Lymph % (Auto) 21.1, Coleman % (Auto) 7.1, Eos % (Auto) 1.7, Baso % (Auto) 0.3, Absolute Neuts (auto) 6.0, Absolute Lymphs (auto) 1.84, Nucleated RBC % 0, Sodium 137, Potassium 3.8, Chloride 106, Carbon Dioxide 23.0, Anion Gap 8, BUN 9, Creatinine 0.55, Estim Creat Clear Calc 153.03, Est GFR (MDRD) Af Amer 147, Est GFR (MDRD) Non-Af 122, BUN/Creatinine Ratio 16.3, Glucose 153 H, Calcium 9.0, Phosphorus 4.3, Magnesium 2.2, Total Bilirubin 0.40, AST 9 L, ALT 20, Alkaline Phosphatase 125 H, Total Protein 7.0, Albumin 3.0 L, Globulin 4.0, Albumin/Globulin Ratio 0.8 L Micro: Microbiology 09/20/24 23:45 Wound - Left Foot Skin and Soft Tissue MRSA/MSSA (PCR - Final Imaging Radiology Impression Toe X-Ray 09/20/24 19:48 IMPRESSION: Soft tissue swelling of the third digit. Underlying lucency, loss of clearly defined margins, and decreased size of the third phalangeal tuft. This may be reactive bone change or osteomyelitis. Osteomyelitis is favored. Electronically Signed: Sana Sanchez MD at 21:47 EST , Assessment & Plan Assessment/Plan (1) Type 2 diabetes mellitus with diabetic polyneuropathy: QUALIFIERS: Diabetes mellitus termite technician insulin use: with termite technician use Qualified Code(s): E11.42 - Type 2 diabetes mellitus with diabetic polyneuropathy; Z79.4 - termite technician (current) use of insulin PLAN: Exam performed. Radiographs reviewed demonstrate osteomyelitis distal phalanx left third toe. Discussed digital amputation with patient, patient agrees. Discussed inherent risk benefits alternative treatments. Patient wished to proceed with left third toe amputation. Will cancel MRI as infection appears limited to distal phalanx and distal tuft of the left third toe. Will order arterial studies to evaluate blood flow to the area. Patient will undergo amputation today at 11:30 AM. Will order hemoglobin A1c for this finding blood glucose control (2) Cellulitis of left lower limb: (3) Other acute osteomyelitis, left ankle and foot:
--- NOTE | 2024-09-21 08:45 | WOUNDNOTE ---
wound photo: left 3rd toe
--- NOTE | 2024-09-21 08:46 | WOUNDNOTE ---
wound photo: left 3rd toe
--- NOTE | 2024-09-21 11:07 | PRE.ANES_ITS ---
ASA Classification* ASA Classification ASA Classification: 3 Assessment & Plan Anesthesia* Anesthesia Assessment Anesthesia Assessment: Discussed sedation and/or anesthesia options, risks, benefits, and alternatives with patient/parents/legal guardian/POA. Questions invited. The patient/parents/legal guardian/POA seems to understand and agrees to proceed with anesthesia plan. Reviewed the physical assessment, medical history, allergy history and patient home medications list prior to surgery/procedure/anesthetic and documented any changes. Performed airway and anesthesia risk assessments. Anesthesia Type Anesthesia Type: MAC History Source History Obtained from:: Patient and Chart Anesthesia Focused Assessment* Temperature: 98 F Pulse Rate: 78 Blood Pressure: 153/75 Respiratory Rate: 16 Pulse Ox: 100 Oxygen Delivery Method: Room Air Airway Assessment Mouth opens: >3 cm Mallampati Score: I Teeth Condition: Intact Neck Range of motion (ROM): Full ROM Focused Labs Anesthesia Preop lab: CBC WBC 8.7 K/mm3 (4.4-11.0) 09/21/24 06:08 RBC 5.06 M/mm3 (4.2-5.4) 09/21/24 06:08 Hgb 15.7 g/dL (12.0-15.0) H 09/21/24 06:08 Hct 47.8 % (37-47) H 09/21/24 06:08 Plt Count 177 K/mm3 (150-450) 09/21/24 06:08 CHEMISTRY Potassium 3.8 mmol/L (3.5-5.1) 09/21/24 06:08 Sodium 137 mmol/L (136-145) 09/21/24 06:08 Magnesium 2.2 mg/dL (1.6-2.6) 09/21/24 06:08 Phosphorus 4.3 mg/dL (2.5-4.9) 09/21/24 06:08 BUN 9 mg/dL (7-18) 09/21/24 06:08 Creatinine 0.55 mg/dL (0.55-1.02) 09/21/24 06:08 Glucose 153 mg/dL (74-106) H 09/21/24 06:08 POC Glucose 151 mg/dL (74-106) H 09/21/24 10:50 TSH 1.81 uIU/mL (0.358-3.74) 05/31/22 05:15 COAG Pre-Assessment Diagnosis/Proposed Procedure Planned Operative Procedure(s): Left foot third toe amputation. Anesthesia History Anesthesia History - design engineering specialist: Anesthesia History - design engineering specialist Hx Hospitalization Any Problems With Anesthesia Yes: FEELS LIKE CRUD FOR 09/21/24 00:05 LONG TIME, HAIR FELL OUT Cholinesterase deficiency You/Your Family Experience No 09/21/24 00:05 fever (hyperthermia) with Relationship Recent Exposure to Contagious No 09/21/24 00:05 Disease Does patient have nerve No 09/21/24 00:05 stimulator Patient instructed to have device shut off --Does patient have Pacemaker No 09/21/24 00:05 or ICD? When Was Last Pacemaker Check QUESTION #4 FULL TEXT: You/Your Family Experience fever (hyperthermia) with Anesthesia Last Oral Intake Last Oral intake: Last Oral Intake NPO since Meds taken in AM with sips of water? Meds patient instructed to take am of surgery Any additional information?: Yes NPO since: 00:00 PONV PONV - design engineering specialist: PONV - design engineering specialist Female HX of Motion Sickness HX of N/V After Surgery Non-Smoker Duration of Surgery greater than 60 minutes Number of Risk Factors PONV Score Height & Weight Height & Weight: Anesthesia: Height & Weight Height 5 ft 9 in 09/21/24 00:05 Weight: 107.955 kg 09/21/24 00:05 Body Mass Index (BMI) 35.1 09/21/24 00:05 Respiratory Assessment Respiratory Assessment - design engineering specialist: Respiratory Tract Infection Hx - design engineering specialist Hx Respiratory Tract Infection No 09/21/24 00:05 STOP Sleep Apnea STOP Sleep Apnea - design engineering specialist: STOP Sleep Apnea - design engineering specialist Hx Hypertension No 09/20/24 23:42 Hx Sleep Apnea No 09/20/24 23:42 CPAP No 09/20/24 23:42 BIPAP No 09/20/24 23:42 Do you snore loudly (louder No 09/20/24 23:42 than talking or can be heard Do you often feel tired/ No 09/20/24 23:42 fatigued/ sleepy during daytime? Has anyone observed you stop No 09/20/24 23:42 breathing during sleep? STOP Results Negative 09/20/24 23:42 QUESTION #5 FULL TEXT : Do you snore loudly (louder than talking or can be heard through closed doors)? Tobacco Use History Tobacco Use History - design engineering specialist: Tobacco Use History - design engineering specialist Tobacco Use Smoking Status Current every day smoker 09/21/24 08:15 Hx Tobacco Use Yes 09/20/24 23:42 Years Smoking Packs Smoked per Day 0.75 09/20/24 23:42 Smoking Cessation Date was within the last 15 years Hx Smoking Cessation Date Hx Smoking Cessation No 09/20/24 23:42 Counseling Hematologic Medial History Hematologic Hx - design engineering specialist: Hematologic Medical Hx - pulmonary physician Hx of Blood Transfusion No 09/20/24 23:42 Hx of Transfusion in last 3 No 09/20/24 23:42 Months Date of Last Transfusion (if within last 3 months) Ever experience any problems No 09/20/24 23:42 with transfusion(s)? Specify any problems Hx of Preganancy in last 3 No 09/20/24 23:42 Months Nurse Filling Out Transfusion TMELLOR 09/20/24 23:42 & Questions: Date: 09/20/24 09/20/24 23:42 Time: 23:44 09/20/24 23:42 Patient unable to answer at this time (ie. confused, unrespo /Reproduction History /Reproductive History - design engineering specialist: /Reproductive Hx- design engineering specialist Hx Now No 09/21/24 00:05 Gestational Age (in weeks): EDC: Hx Hx Para Hx Section SAB Active Medications Active Medications: Current Medications Generic Name Dose Route Start Last Admin Trade Name Freq PRN Reason Stop Dose Admin Acetaminophen 1,000 mg 09/21/24 06:00 09/21/24 00:34 Acetaminophen 500 Mg Tablet PO 1,000 mg Q8 RAMANDEEP Administration Albuterol Sulfate 2.5 mg 09/20/24 23:30 Albuterol 2.5 Mg/3 Ml Vial.Neb. INHALATION Q2H PRN PRN SOB &/OR WHEEZING Carbamazepine 400 mg 09/21/24 10:00 09/21/24 08:03 Carbamazepine 200 Mg Tablet PO 400 mg BID RAMANDEEP Administration Carbamazepine 200 mg 09/21/24 16:00 Carbamazepine 200 Mg Tablet PO 1600 RAMANDEEP Duloxetine HCl 60 mg 09/21/24 10:00 Duloxetine Hcl 60 Mg Capsule PO DAILY RAMANDEEP Empagliflozin 25 mg 09/21/24 10:00 Empagliflozin 25 Mg Tablet PO DAILY [facility] Enoxaparin Sodium 40 mg 09/21/24 10:00 Enoxaparin 40 Mg/0.4 Ml Syringe SC DAILY [facility] Glucagon 1 mg 09/20/24 23:30 Glucagon 1 Mg/Ml Syringe IM X1 PRN HYPOGLYCEMIA Protocol Piperacillin Sod/Tazobactam 50 mls @ 12.5 mls/hr 09/21/24 06:00 09/21/24 05:44 Sod 3.375 gm/ Sodium Chloride IV 12.5 mls/hr Q8 RAMANDEEP Administration Vancomycin IV-PHARMACY TO DOSE 500 mls @ 250 mls/hr 09/20/24 23:30 1 each/ Sodium Chloride IV PRN PRN Rx to Dose Protocol Dextrose 250 mls @ 0 mls/hr 09/20/24 23:30 Dextrose 10%-Water IV .Q0M PRN HYPOGLYCEMIA Protocol As Directed Sodium Chloride 100 mls @ 15 mls/hr 09/20/24 23:32 IV .Q6H40M PRN Saline Flush Vancomycin HCl 1,250 mg/ 275 mls @ 167 mls/hr 09/21/24 07:00 09/21/24 08:00 Sodium Chloride IV Infused Q8H [facility] Infusion Insulin Human Lispro 0 unit 09/21/24 07:00 09/21/24 05:52 Insulin Lispro 100 Unit/Ml Insuln.Pen SC 2 u ACHS [facility] Administration Protocol Loratadine 10 mg 09/21/24 10:00 Loratadine 10 Mg Tablet PO DAILY [facility] Nicotine 14 mg 09/21/24 10:00 Nicotine 14 Mg Patch TD DAILY [facility] Nutritional Formula (Lactose Free) 120 ml 09/21/24 10:00 Glucerna Shake 120 Ml Liquid PO 4X/DAY [facility] Ondansetron HCl 4 mg 09/20/24 23:30 Ondansetron 4 Mg/2 Ml Vial IV Q8H PRN PRN NAUSEA/VOMITING Oxycodone HCl 5 mg 09/20/24 23:30 Oxycodone 5 Mg Tablet PO Q4H PRN PRN Pain Score 4-10 Senna/Docusate Sodium 2 tablet 09/20/24 23:30 Senna/Docusate Sodium 1 Tablet PO BID PRN PRN Constipation Sodium Chloride 10 - 40 ml 09/20/24 23:32 09/21/24 05:44 0.9% Saline Lock 10 Ml Syringe IV 10 ml UD PRN Administration SALINE FLUSH Vancomycin Protocol 1 lab 09/21/24 20:30 Vancomycin Trough/Random Due 09/22/24 00:30 DAILY [facility] Medical History Diabetes mellitus, type 2 Cervical disc herniation Migraine Chronic neck pain Nerve pain TIA (transient ischemic attack) Home Medications ?Medication ?Instructions ?Recorded ?Last Taken ?Type cetirizine 10 mg tablet (Zyrtec) 10 mg PO DAILY allergies 05/30/22 05/29/22 21:00 History cholecalciferol (vitamin D3) 1,250 1 unit PO Qformerly [facility] 05/30/22 05/26/22 History mcg (50,000 unit) capsule acetaminophen 500 mg tablet 1,000 mg (2 x 500 mg) PO Q8H PRN 06/01/22 Unknown Rx (Acetaminophen Pain Relief) PRN pain #30 tabs duloxetine 60 mg capsule,delayed 60 mg PO DAILY 05/01/24 Unknown History release empagliflozin 10 mg tablet 25 mg PO DAILY 05/01/24 Unknown History (Jardiance) tizanidine 4 mg tablet 2 - 4 mg PO TID PRN PRN muscle 05/01/24 Unknown History spasticity carbamazepine 200 mg tablet 200 mg PO 12 TRIGEMINAL NEURALGIA 09/21/24 Unknown History carbamazepine 200 mg tablet 400 mg PO BID TRIGEMINAL NEURALGIA 09/21/24 09/21/24 History Allergy/AdvReac Type Severity Reaction Status Date / Time cyclobenzaprine (From Allergy Other Verified 09/20/24 17:46 Flexeril) metaxalone (From Skelaxin) Allergy Itching Verified 09/20/24 17:46 moxifloxacin (From Avelox) Allergy Other Verified 09/20/24 17:46 pregabalin (From Lyrica) Allergy Other Verified 09/20/24 17:46 Family History Other Diabetes Hypertension Surgical History Hx of laparoscopy History of laparoscopic cholecystectomy Social History housing: house Smoking Status: Current every day smoker tobacco type: cigarettes alcohol intake: current alcohol intake frequency: a few times a month substance use type: does not use Review of Systems (Anesthesia) ROS Narrative System reviewed and no additional complaints, except as documented.
[2024-09-21 11:10] LABS: Bedside Glucose 151 mg/dL (74-106)
--- NOTE | 2024-09-21 11:30 | BON_PTH ---
PATIENT: DESTIN KRUSE LOC: MS3 U#:[id number] AGE/SX: 53/F ROOM: MS314 RE09/20/[address]: Dr. Kimberlyn Sands MD : 1970 BED: 1 DIS: 09/22/2024 SPEC #: [id number] RECD: 09/21/24 12:46 STATUS: RAOUL REQ #: [id number] BELL: 09/21/24 11:[address]: Scotty Marsh DEPT: SURGICAL PATHOLOGY RECD BY: Jessie Barnes ENTERED: 09/21/24 13:03 SP TYPE: Bone OTHR DR: Dr. Scotty Marsh, DPM Dr. Rashid Lou, DO Dr. Sujey Gudino, DO Dr. Kimberlyn Sands MD Tissues: Phalanx of foot, NOS Procedures: Decalcification bone/plaque Surgery Specimen Level IV Comments: @ Ordering doctor for DEC edited from to @ by DANIEL at 09/21/24 1326 @ Ordering doctor for SUIV edited from to @ by DANIEL at 09/21/24 1326 @ Submitting doctor edited from to @ by DANIEL at 09/21/24 1326 HEADER OPERATION: Amputation toe 3rd PRE-OP DIAGNOSIS: Osteomyelitis TISSUE SUBMITTED: Left third toe - distal phalanx MICROSCOPIC DIAGNOSIS Left Third Toe, Distal Phalanx, Amputation: 1. Osteonecrosis 2. Acute osteomyelitis 3. Ulceration JS, 09/26/2024 MICROSCOPIC DESCRIPTION Slides are reviewed. GROSS DESCRIPTION Received in fixative is one container labeled with the patient's name and designated Distal phalanx, left 3rd toe. The specimen consists of multiple fragments of bone mixed with cronin soft tissue measuring in aggregate 1.5 x 1.5 x 0.4cm. The entire specimen is submitted in one cassette after decalcification. 09/21/2024 TC:2 CPT:04000,94130
--- NOTE | 2024-09-21 11:30 | BON_PTH ---
PATIENT: DESTIN KRUSE LOC: MS3 U#:[id number] AGE/SX: 53/F ROOM: MS314 RE09/20/[address]: Dr. Kimberlyn Sands MD : 1970 BED: 1 DIS: 09/22/2024 SPEC #: [id number] RECD: 09/21/24 12:46 STATUS: AROUL REQ #: [id number] BELL: 09/21/24 11:[address]: Scotty Marsh DEPT: SURGICAL PATHOLOGY RECD BY: Jessie Barnes ENTERED: 09/21/24 13:03 SP TYPE: Bone OTHR DR: Dr. Scotty Marsh, DPM Dr. Rashid Lou, DO Dr. Sujey Gudino, DO Dr. Kimberlyn Sands MD Tissues: Phalanx of foot, NOS Procedures: Decalcification bone/plaque Surgery Specimen Level IV Comments: @ Ordering doctor for DEC edited from to @ by DANIEL at 09/21/24 1326 @ Ordering doctor for SUIV edited from to @ by DANIEL at 09/21/24 1326 @ Submitting doctor edited from to @ by DANIEL at 09/21/24 1326 HEADER OPERATION: Amputation toe 3rd PRE-OP DIAGNOSIS: Osteomyelitis TISSUE SUBMITTED: Left third toe - distal phalanx MICROSCOPIC DIAGNOSIS Left Third Toe, Distal Phalanx, Amputation: 1. Osteonecrosis 2. Osteomyelitis 3. Ulceration JS, 09/26/2024 MICROSCOPIC DESCRIPTION Slides are reviewed. GROSS DESCRIPTION Received in fixative is one container labeled with the patient's name and designated Distal phalanx, left 3rd toe. The specimen consists of multiple fragments of bone mixed with cronin soft tissue measuring in aggregate 1.5 x 1.5 x 0.4cm. The entire specimen is submitted in one cassette after decalcification. 09/21/2024 TC:2 CPT:66901,15593
[2024-09-21] MEDS: Bupivacaine Mpf 0.5% 30 ML VIAL (12:18)
--- NOTE | 2024-09-21 12:23 | OP.PCM_ITS ---
Problems Associated Problem List Diagnoses (1) Other acute osteomyelitis, left ankle and foot: Operative Report (Standard) Operative Information Date of Procedure: 09/21/24 Pre-Operative Diagnosis: 1) Osteomyelitis left 3rd toe Post-Operative Diagnosis: same Surgery/Procedure Performed: 1) Amputation of left 3rd toe cutter machine tender: No Type of Anesthesia: MAC RN Documented Start/Stop Times: Operation Date: 09/21/24 11:30 Case Time Into Pre-Op 09/21/24 10:59 Out of Pre-Op 09/21/24 11:25 Anesthesia Start 09/21/24 11:33 Into Room 09/21/24 11:33 Procedure Start 09/21/24 11:55 Procedure End Procedure Start Time: 11:45 Procedure Stop Time: 12:20 Select all DRAINS/GRAFTS/IMPLANTS that apply: None Special Medications: 20 cc 0.5% marcaine plain Estimated Blood Loss: minimal Specimen collected: Yes Description of specimen(s) removed: left 3rd toe bone culture and pathology, distal phalanx Description of surgery: Patient admitted to hospital for osteomyelitis to the left third toe. Discussed performing elective amputation to the left third toe for definitive infection clearance, patient agreeable. Patient was brought back the operating placed completely in the supine position on the operating room table. Patient was induced under MAC anesthesia. Well- padded left ankle tourniquet was applied this was not used throughout the case. A local infiltration block was performed using a digital block with 10 cc 0.5% Marcaine plain using sterile aseptic technique. Left lower extremity was scrubbed prepped draped using typical aseptic fashion. Once cleared by anesthesia a distal fishmouth incision was drawn just distal to the distal interphalangeal joint. This excised the necrotic distal tuft wound which extended down to the distal phalanx. This incision was made with a 15 blade full-thickness through epidermis dermis subcutaneous tissue down to level of the distal interphalangeal joint at which the distal phalanx was removed at the level of the distal interphalangeal joint the distal phalanx was noted to be crumbly and lost its bone mineral density secondary to chronic infection. This was split and half of the distal phalanx was sent for bone and tissue culture the other half was sent for bone pathology. The incisional site was then examined and there was adequate soft tissue for closure of the amputation site the site was flushed with copious amounts normal sterile sterile saline and closed primarily using simple interrupted 4-0 nylon. Tourniquet was not used throughout the case. Additional 10 cc half percent Marcaine plain was performed using a digital block technique. Site was dressed with Betadine Adaptic 4 x 4's Kerlix and Diego bandage. Patient was transferred to PACU with vital signs stable and vascular status intact all digits for further monitoring prior to transfer back to floor. Patient tolerated procedure and anesthesia well apparent satisfactory condition. No complications Residual tissue after amputation of the distal phalanx was noted be intact. Examination of the middle phalangeal head demonstrated intact articular cartilage with no loss or signs of bone breakdown or infection. There is healthy bleeding to the amputation site upon excision of the necrotic wound and infected distal phalanx. This suggest good wound healing potential. Pathologic specimen was the distal phalanx for bone pathology as well as a bone culture of the distal phalanx for microbiology Surgical Findings: As dictated above Complications Complications: No
--- NOTE | 2024-09-21 12:29 | PCM.POST.ANE ---
Anesthesia: Postop Eval I Current Vital Signs Temperature: 97 F Pulse Rate: 74 Blood Pressure: 131/74 Respiratory Rate: 16 Pulse Ox: 95 Assessment Airway patent: Yes Spontaneous unlabored respirations: Yes Mental status: Awake and Calm nausea: No Vomiting: No Anesthesia Complication: No Fluid Hydration Crystalloid volume administer (ml): 10 Total IV fluid infused: 10 Progress Note Anesthesia document: Postop Eval 1 completed: Yes
[2024-09-21] MEDS: Loratadine 10 MG Tablet PO (13:17)
[2024-09-21] MEDS: DULoxetine Hcl 60 MG Capsule PO (13:17)
[2024-09-21] MEDS: Empagliflozin 25 MG Tablet PO (13:18)
--- NOTE | 2024-09-21 13:50 | CASEMGMT ---
DARREL GASPAR Face to Face with patient for initial transition planning/care coordination assessment. DARREL GASPAR introduced self and role at [facility]. Patient lying in bed, alert and oriented. Patient willing to participate in assessment and is able to answer all questions appropriately. Care providers, pharmacy, and demographics verified. Strata: 2 PCP: Carmine Specialists: Mary, parallel computing software engineer Preferred Pharmacy: [facility] Castell[facility]; [facility] at discharge. Insurance: [facility] Prescription Benefit: yes Living Will/HPOA: none LNOK: daughter, son, mother Living Arrangements: Patient lives with son and mother in a 2 story home with bed and bath on first floor, 4 steps and railing to enter. Patient states she is independent at home. Transportation: self, daughter DME/HHC: Patient has shower chair, raised toilet, cane, walker, and glucometer at home. Pateint states her test strips for glucometer have , patient calling pharmacy to check on refills, has appt with PCP on Tuesday. No previous HHC or SNF Patient wishes to discharge home, denies need for home health at this time. DARREL GASPAR discuss possible IV ATBS at discharge and need for HHC at discharge. Will monitor for ATBS at discharge. Patient states she has no further needs or concerns at this time. CM to follow for discharge planning needs that may arise. Disposition Plan: Patient to discharge home with family support and follow-up plans. Will monitor for ATBS at discharge. Katerina DEAL, RN, CM
--- NOTE | 2024-09-21 14:33 | PN_ITS ---
Subjective Subjective Patient seen and examined. Her daughter was by her bedside. She had no active complaints and had an uneventful night. Review of systems otherwise negative. She is due for surgery today. Objective Data Objective Data Vital Signs: Vital Signs Temp Pulse Resp BP Pulse Ox O2 Del Method 98.7 F 71 18 137/71 H 100 Room Air 09/21/24 13:09 09/21/24 13:09 09/21/24 13:10 09/21/24 13:09 09/21/24 13:09 09/21/24 13:10 Oxygen Delivery Method Room Air Weight: 238 lb Body Mass Index (BMI) 35.1 Intake & Output: Intake and Output for Last 24 Hours 09/19/24 09/20/24 09/21/24 23:59 23:59 23:59 Intake Total 100 / 100 860 / 860 Balance 100 / 100 860 / 860 Lab / Micro Data 09/21/24 06:08 09/21/24 06:08 Labs: Laboratory Results - last 24 hr 09/20/24 19:47: WBC 11.9 H, RBC 5.39, Hgb 16.6 H, Hct 50.3 H, MCV 93.3, MCH 30.8, MCHC 33.0, RDW Std Deviation 45.4 H, RDW Coeff of Michael 13.2, Plt Count 195, MPV 9.6, ESR 43 H, Sodium 136, Potassium 3.9, Chloride 101, Carbon Dioxide 28.0, Anion Gap 6, BUN 14, Creatinine 0.69, Estim Creat Clear Calc 123.05, Est GFR (MDRD) Af Amer 114, Est GFR (MDRD) Non-Af 94, BUN/Creatinine Ratio 20.4 H, G lucose 172 H, Calcium 9.3, C-React Prot Ext Range 38.40 H 09/21/24 05:47: POC Glucose 190 H 09/21/24 06:08: WBC 8.7, RBC 5.06, Hgb 15.7 H, Hct 47.8 H, MCV 94.5, MCH 31.0, MCHC 32.8, RDW Std Deviation 45.6 H, RDW Coeff of Michael 13.2, Plt Count 177, MPV 9.8, Immature Gran % (Auto) 0.300, Neut % (Auto) 69.5, Lymph % (Auto) 21.1, [place] % (Auto) 7.1, Eos % (Auto) 1.7, Baso % (Auto) 0.3, Absolute Neuts (auto) 6.0, Absolute Lymphs (auto) 1.84, Nucleated RBC % 0, Sodium 137, Potassium 3.8, Chloride 106, Carbon Dioxide 23.0, Anion Gap 8, BUN 9, Creatinine 0.55, Estim Creat Clear Calc 153.03, Est GFR (MDRD) Af Amer 147, Est GFR (MDRD) Non-Af 122, BUN/Creatinine Ratio 16.3, Glucose 153 H, Hemoglobin A1c 7.0 H, Calcium 9.0, Phosphorus 4.3, Magnesium 2.2, Total Bilirubin 0.40, AST 9 L, ALT 20, Alkaline Phosphatase 125 H, Total Protein 7.0, Albumin 3.0 L, Globulin 4.0, A lbumin/Globulin Ratio 0.8 L 09/21/24 10:50: POC Glucose 151 H Micro: Microbiology 09/20/24 23:45 Wound - Left Foot Gram Stain - Final 09/20/24 23:45 Wound - Left Foot Skin and Soft Tissue MRSA/MSSA (PCR - Final Radiography Diagnostic Testing: Radiology Impression Toe X-Ray 09/20/24 19:48 IMPRESSION: Soft tissue swelling of the third digit. Underlying lucency, loss of clearly defined margins, and decreased size of the third phalangeal tuft. This may be reactive bone change or osteomyelitis. Osteomyelitis is favored. Electronically Signed: Sana Sanchez MD at 21:47 EST Reading Location ID and State: [facility] / [place] Tel , Service support , Physical Exam Const alert, oriented x3, no apparent distress and well nourished General Appearance: cooperative and well developed HEENT normocephalic, head/scalp atraumatic and moist oral mucous membranes Eyes PERRL and EOMs intact bilaterally Neck no lymphadenopathy, supple and no JVD Lymph Lymphatic: no lymphadenopathy noted Resp normal respiratory effort, normal air movement and clear to auscultation bilaterally Cardio regular rate, regular rhythm, S1 normal heart sound, S2 normal heart sound and no murmurs GI normal to inspection, nondistended, normoactive bowel sounds, soft to palpation, non-tender and non-distended Extremity Extremity Narrative: left foot wrapped in bandage Skin Skin Narrative: as under extremities Neuro CN's II-XII intact bilaterally, no focal motor deficits and no sensory deficits noted Coordination / Balance: [id number] test normal Motor Exam: strength 5/5 throughout and general weakness Psych thought process normal and cooperative Appearance: appropriate Assessment & Plan Assessment/Plan (1) Other acute osteomyelitis, left ankle and foot: PLAN: Plan #Osteomyelitis with diabetic foot ulcer of the 3rd digit on the left foot * Podiatry on board. On IV vancomycin and Zosyn. * Wound cultures ordered. * Has surgery by podiatry today-amputation of the left third toe. #Type 2 diabetes mellitus: On Jardiance. Insulin sliding scale. Accu-Cheks ACHS. A1c is 7. #History of migraines: On Tylenol as needed #Chronic neck pain: On duloxetine and tizanidine #Nicotine dependence: Counseled to quit. #DVT prophylaxis: Lovenox Charges/Coding Visit Charges Inpatient E&M: 17224 Subs Hosp L2
[2024-09-21] MEDS: carBAMazepine 200 MG Tablet PO (15:17)
[2024-09-21 17:02] LABS: Bedside Glucose 207 mg/dL (74-106)
--- NOTE | 2024-09-21 20:11 | CPS ---
Pt eating, refused to do at this time. IS and PEP explained and pt stated she understands and has had them before.
[2024-09-21 21:59] LABS: Bedside Glucose 145 mg/dL (74-106)
--- NOTE | 2024-09-21 23:52 | PCM.RX.CS ---
Consult Antibiotic Management Pharmacy has been consulted to manage selected antibiotic: Vancomycin Type of Intervention Type of Consult: Follow-up Suspected Infection Suspected Infection: Osteomyelitis Labs Labs: Sodium 137 mmol/L (136-145) 09/21/24 06:08 Potassium 3.8 mmol/L (3.5-5.1) 09/21/24 06:08 Chloride 106 mmol/L (98-107) 09/21/24 06:08 Carbon Dioxide 23.0 mmol/L (21.0-32.0) 09/21/24 06:08 Anion Gap 8 (5-15) 09/21/24 06:08 BUN 9 mg/dL (7-18) 09/21/24 06:08 Creatinine 0.55 mg/dL (0.55-1.02) 09/21/24 06:08 Est GFR (MDRD) Af Amer 147 mL/min (>60) 09/21/24 06:08 Est GFR (MDRD) Non-Af 122 mL/min (>60) 09/21/24 06:08 BUN/Creatinine Ratio 16.3 RATIO (10-20) 09/21/24 06:08 Glucose 153 mg/dL (74-106) H 09/21/24 06:08 Vancomycin Trough 17.0 ug/mL (5.0-15.0) H 09/21/24 22:48 Microbiology Microbiology: Microbiology 09/21/24 12:04 Tissue - 3rd Toe Gram Stain - Final 09/20/24 23:45 Wound - Left Foot Gram Stain - Final 09/20/24 23:45 Wound - Left Foot Skin and Soft Tissue MRSA/MSSA (PCR - Final Dosing Weight Weight used for dosin kg Estimated Creatinine Clearance Estimated Creatinine Clearance: 153 Goal Trough Goal Trough: 15-20 mcg/mL Pharmacy Plan for Drug Dosing Pharmacy Plan for Drug Dosing: Vancomycin trough level of 17.0, drawn 7.5hrs post-dose, was right within the target range of 15-20. Will continue dosing at 1250mg q8h, and will draw another trough level in two days. Pharmacy Service will continue to monitor and adjust dosing as required. Follow-Up Labs Follow-Up Labs: Trough: Vancomycin Date/Time Labs Ordered Labs to be done on [date and time ordered]: 09/23/24 @4667
[2024-09-22] MEDS: Vancomycin HCl 1,250 MG in 0.9% Normal Saline (250mL Bag) 250 ML 167 MG IV ×3 (00:19→14:49)
[2024-09-22 03:40] VITALS: BP 150/76; PULSE 68; RESP 18; TEMP 36.4; O2SAT 96
[2024-09-22 05:53] LABS: Absolute Lymphocyte Count 1.82 X10^3/uL (0.83-4.51); Absolute Neutrophil Count 4.6 X10^3/uL (2.0-7.7); Basophil# 0.05 X10^3/uL; Basophil% 0.7 % (0-1); Eosinophil# 0.15 X10^3/uL; Eosinophils% 2.1 % (0-5); Hematocrit 47.2 % (37-47); Hemoglobin 15.8 g/dL (12.0-15.0); Lymphocyte # 1.82 X10^3/ul (0.83-4.51); Lymphocyte % 25.8 % (19-41); Mean Corp Hgb Conc 33.5 g/dL (32-36); Mean Corpuscular Hgb 31.3 pg (27.0-32.0); Mean Corpuscular Volume 93.5 fL (81-99); Mean Platelet Vol. 9.9 fl (6.2-12.0); Monocyte# 0.46 X10^3/uL; Monocyte% 6.5 % (0-10); NRBC Flagged by Analyzer 0 % (0-5); Neutrophil # 4.55 X10^3/uL (2.7-7.7); Neutrophil % 64.6 % (47-70); Platelet Count 173 K/mm3 (150-450); RBC Distribution Width CV 13.1 % (11.6-14.6); RBC Distribution Width SD 44.5 fl (35.1-43.9); Red Blood Count 5.05 M/mm3 (4.2-5.4); White Blood Count 7.1 K/mm3 (4.4-11.0)
[2024-09-22 06:05] LABS: Anion Gap 5 (5-15); BUN 12 mg/dL (7-18); BUN/Creat Ratio 24.1 RATIO (10-20); Calcium,Total 9.3 mg/dL (8.5-10.1); Chloride 107 mmol/L (98-107); EST Glomerular Filtration Rate 137 mL/min (>60); Est Glom Filt Rate - Afr Amer 166 mL/min (>60); Estimated Creatinine Clearance 167.56 ml/min; Glucose 144 mg/dL (74-106); Potassium 3.8 mmol/L (3.5-5.1); Sodium Level 138 mmol/L (136-145)
[2024-09-22] MEDS: Piperacil/Tazobactam 3.375 GM in 0.9% Normal Saline (50mL MB+) 50 ML IV ×2 (06:55→13:12)
[2024-09-22] MEDS: Acetaminophen 500 MG Tablet 1000 MG PO ×2 (06:55→13:14)
[2024-09-22] MEDS: carBAMazepine 200 MG Tablet 400 MG PO (07:05)
[2024-09-22] MEDS: Enoxaparin 40 MG/0.4 ML Syringe SC (08:35)
[2024-09-22] MEDS: Empagliflozin 25 MG Tablet PO (08:35)
[2024-09-22] MEDS: DULoxetine Hcl 60 MG Capsule PO (08:35)
[2024-09-22] MEDS: Loratadine 10 MG Tablet PO (08:35)
[2024-09-22 08:38] VITALS: BP 136/94; PULSE 74; RESP 18; TEMP 36.5; O2SAT 95
[2024-09-22 08:41] VITALS: PULSE 80
--- NOTE | 2024-09-22 10:48 | PCM.POSTANE2 ---
Anesthesia Postop Eval I Sum Postop Eval Completion status Anesthesia document: Postop Eval 1 completed: Yes Anesthesia Postop Eval I Summary Anesthesia Postop Eval I Summary: Anesthesia Postop Eval I: Assessment Summary Airway patent Yes 09/21/24 12:31 Spontaneous unlabored Yes 09/21/24 12:31 respirations Mental status Awake,Calm 09/21/24 12:31 nausea No 09/21/24 12:31 Vomiting No 09/21/24 12:31 Anesthesia Postop Eval I: Fluid Summary Crystalloid volume administer 10 09/21/24 12:31 (ml) Colloids volume administered ( ml) Blood Product volume administered (ml) Total IV fluid infused 10 09/21/24 12:32 Anesthesia Postop Eval I: Summary Notes Anesthesia Complication No 09/21/24 12:31 Anesthesia Complication Comment: Post-operative progress note Anesthesia: Postop Eval II Evaluation Mental status: Awake and Calm Pain Level: 0 nausea: No Vomiting: No Complications Anesthesia Complication: No
[2024-09-22 11:41] LABS: Bedside Glucose 142 mg/dL (74-106)
[2024-09-22 12:01] LABS: Bedside Glucose 126 mg/dL (74-106)
[2024-09-22 14:48] VITALS: BP 150/90; PULSE 65; RESP 20; TEMP 36.9; O2SAT 95
[2024-09-22 15:27] VITALS: O2SAT 94
[2024-09-22] MEDS: carBAMazepine 200 MG Tablet PO (16:45)
[2024-09-22] MEDS: Insulin Lispro 100 UNIT/ML INSULN.PEN SC (16:45)
[2024-09-22 16:54] VITALS: BP 154/84; PULSE 72; RESP 18; TEMP 36.5; O2SAT 100
--- NOTE | 2024-09-22 16:55 | DCINST_ITS ---
Discharge Instructions Diet Discharge Diet: Low fat / Low cholesterol DC O2, CPAP, BIPAP needs Home O2 Discharge instructions: No Dressing / Incision Discharge Activity: Return to Normal Activity Weight Bearing Status: Weight bearing as tolerated Dressing / Incision Call your doctor if your incision/area has: Continuous Slow Oozing, Sudden Increased Bleeding, Increased Pain/ Swelling, Increased Redness, Foul Smelling Discharge and Swelling at the incision site Call your doctor if you observe: Fever of 101 or Higher, Shortness of breath, Dizziness, Swelling in the ankles, Chest pain and Uncontrolled pain Follow Up Care Test Results: Test results from this visit will be discussed in further detail at your follow- up appointment, if applicable. Discharge Plan Admission Admit Date/Time: 09/20/24 22:21 Primary Reason for Your Visit: osteoemyelitis of the right toe Attending Provider: Kimberlyn Sands Primary Care Provider: Rashid Lou Consulting Providers: Sujey Gudino; Scotty Marsh Instructions Patient Instructions: Osteomyelitis Dc Additional Instructions / Restrictions: not to change dressing until follow up with Dr Marsh within one week. Discharge Orders/Prescriptions Prescriptions: New doxycycline hyclate 100 mg tablet 100 mg PO BID Qty: 14 0RF Continued cetirizine [Zyrtec] 10 mg Tablet 10 mg PO DAILY cholecalciferol (vitamin D3) 1,250 mcg (50,000 unit) capsule 1 unit PO QWEEK Patient Comments: take 1 capsule by mouth every week acetaminophen [Acetaminophen Pain Relief] 500 mg tablet 1,000 mg PO Q8H PRN PRN (Reason: pain) Qty: 30 0RF duloxetine 60 mg capsule,delayed release(DR/EC) 60 mg PO DAILY Jardiance 10 mg tablet 25 mg PO DAILY tizanidine 4 mg tablet 2 - 4 mg PO TID PRN PRN (Reason: muscle spasticity) carbamazepine 200 mg tablet 200 mg PO 12 carbamazepine 200 mg Tablet 400 mg PO BID Referrals / Follow Up: Scotty Marsh DPM [Med Staff - Active Staff] - Within 1 Week Rashid Lou DO [Primary Care Provider] - Within 1 Week Disposition Disposition (needs filled in before D/C Order can be placed): Home, Self Care
--- NOTE | 2024-09-22 16:56 | DS.PCM_ITS ---
Providers Date of Admission: 09/20/24 Date of Discharge: 09/22/24 Primary Care Physician: Dr. 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 On IV vancomycin and Zosyn. * Wound cultures ordered. * Has surgery by podiatry today-amputation of the left third toe. #Type 2 diabetes mellitus: On Jardiance. Insulin sliding scale. Accu-Cheks ACHS. A1c is 7. #History of migraines: On Tylenol as needed #Chronic neck pain: On duloxetine and tizanidine #Nicotine dependence: Counseled to quit. #DVT prophylaxis: Lovenox Medications at Discharge Home Medications cetirizine 10 mg tablet (Zyrtec) 10 mg PO DAILY allergies 05/30/22 cholecalciferol (vitamin D3) 1,250 mcg (50,000 unit) capsule [facility] acetaminophen 500 mg tablet (Acetaminophen Pain Relief) 1,000 mg (2 x 500 mg) PO Q8H PRN PRN pain #30 tabs 06/01/22 duloxetine 60 mg capsule,delayed release 60 mg PO DAILY 05/01/24 empagliflozin 10 mg tablet (Jardiance) 25 mg PO DAILY 05/01/24 tizanidine 4 mg tablet 2 - 4 mg PO TID PRN PRN muscle spasticity 05/01/24 carbamazepine 200 mg tablet 200 mg PO 12 TRIGEMINAL NEURALGIA 09/21/24 carbamazepine 200 mg tablet 400 mg PO BID TRIGEMINAL NEURALGIA 09/21/24 doxycycline hyclate 100 mg tablet 100 mg PO BID #14 tabs 09/22/24 Hospital Course Operations - (amputation of third left toe) Procedures None Summary of Care Provided Minutes Spent on Discharge: 45 Hospital Course: Patient is a 53-year-old female with a past medical history as outlined was admitted to the ED on 09/20/2024 with a complaint of diabetic foot wound on the third left toe which was not healing. She had been seeing podiatry on outpatient basis but had not been improving and the wound had progressed to the point where it affected the bone. She had seen podiatry on outpatient basis was directed to the ED to be admitted for suspected osteomyelitis and cellulitis of the left foot. Podiatry was consulted. Patient admitted to still smoking. She was started on broad-spectrum antibiotic with IV vancomycin and Zosyn. Podiatry was consulted. CT scan done was concerning for osteomyelitis of the third left toe. She had amputation of the left third toe on 09/21/2024. Cultures were still pending at time of discharge but per podiatry recommendations she was discharged on p.o. doxycycline 100 mg twice daily for 7 days. She is to follow up with her PCP and with podiatry within 1-2 weeks. Patient seen and examined. She had no complaints and was eager to be discharged. Review of systems was otherwise negative. Labs and vitals reviewed. Home meds reviewed and reconciled. Physical Exam Const alert, oriented x3, no apparent distress, healthy appearing and well nourished General Appearance: cooperative, comfortable and well developed Exam Limitations: no limitations HEENT normocephalic, head/scalp atraumatic, hearing grossly normal bilaterally and moist oral mucous membranes Mouth: oral and palatal mucosa normal Eyes PERRL, EOMs intact bilaterally and conjunctivae normal Neck no lymphadenopathy, supple and no JVD Lymph Lymphatic: no lymphadenopathy noted Resp normal respiratory effort, normal air movement, no retractions, no use of accessory muscles and clear to auscultation bilaterally Auscultation: wheezes; Negative for rales or rhonchi Cardio regular rate, regular rhythm, S1 normal heart sound, S2 normal heart sound, no murmurs, no rub, no gallops and no clicks GI normal to inspection, nondistended, normoactive bowel sounds, soft to palpation, non-tender and non-distended Extremity Extremity Narrative: left foot wrapped in bandage Skin No no wounds, skin turgor normal, no jaundice, no petechiae and no mottling Skin Narrative: as under extremities Neuro oriented x3, CN's II-XII intact bilaterally, moves all extremities, no focal motor deficits and no sensory deficits noted Coordination / Balance: [id number] test normal Speech: speech normal Motor Exam: strength 5/5 throughout and general weakness Psych thought process normal, cooperative and affect normal Appearance: appropriate Weight / BMI Weight Weight: 235 lb 14.314 oz Body Mass Index (BMI) 35.1 ABG / Lab / Microbiology Data 09/22/24 05:12 09/22/24 05:12 Laboratory: Laboratory Results - last 24 hr 09/21/24 16:36: POC Glucose 207 H 09/21/24 21:25: POC Glucose 145 H 09/21/24 22:48: Vancomycin Trough 17.0 H 09/22/24 05:12: WBC 7.1, RBC 5.05, Hgb 15.8 H, Hct 47.2 H, MCV 93.5, MCH 31.3, MCHC 33.5, RDW Std Deviation 44.5 H, RDW Coeff of Michael 13.1, Plt Count 173, MPV 9.9, Immature Gran % (Auto) 0.300, Neut % (Auto) 64.6, Lymph % (Auto) 25.8, [place] % (Auto) 6.5, Eos % (Auto) 2.1, Baso % (Auto) 0.7, Absolute Neuts (auto) 4.6, Absolute Lymphs (auto) 1.82, Nucleated RBC % 0, Sodium 138, Potassium 3.8, Chloride 107, Carbon Dioxide 26.0, Anion Gap 5, BUN 12, Creatinine 0.50 L, Estim Creat Clear Calc 167.56, Est GFR (MDRD) Af Amer 166, Est GFR (MDRD) Non-Af 137, BUN/Creatinine Ratio 24.1 H, Glucose 144 H, Calcium 9.3 09/22/24 06:59: POC Glucose 142 H 09/22/24 11:28: POC Glucose 126 H Microbiology: Microbiology 09/20/24 23:45 Wound - Left Foot Gram Stain - Final 09/20/24 23:45 Wound - Left Foot Wound Culture - Preliminary Mixed Gram Positive Organisms 09/20/24 23:45 Wound - Left Foot Skin and Soft Tissue MRSA/MSSA (PCR - Final 09/21/24 12:04 Tissue - 3rd Toe Gram Stain - Final D/C Instructions Discharge Diet: Low fat / Low cholesterol Discharge Activity: Return to Normal Activity Weight Bearing Status: Weight bearing as tolerated Call your doctor if your incision/area has: Continuous Slow Oozing, Sudden Increased Bleeding, Increased Pain/ Swelling, Increased Redness, Foul Smelling Discharge and Swelling at the incision site Call your doctor if you observe: Fever of 101 or Higher, Shortness of breath, Dizziness, Swelling in the ankles, Chest pain and Uncontrolled pain Additional Dressing/Incision Instructions: not to change dressing until she follows with Dr Marsh within 1 week. DC O2, CPAP, BIPAP Needs Home O2 Discharge instructions: No Meaningful Use Info Meaningful Use Meaningful Use Diagnoses (Choose all that apply): None applicable Ischemic Stroke Statin Dosing Therapy Reference: STATIN DOSE THERAPY REFERENCE: * Patients > 75 years receive moderate or high dose statin therapy. * Patients 75 years or YOUNGER should receive HIGH intensity statin dose unless contraindicated. You will be required to document reason for non-treatment if statin daily dose does not meet guidelines. HIGH DOSE STATIN THERAPY DAILY Atorvastatin > than or = to 40 mg Rosuvastatin > than or = to 20 mg Amlodipine + Atorvastatin > than or = to 2.5/40 mg Ezetimibe + Simvastatin 10/80 mg Simvastatin 80mg Discharge Plan Admission Admit Date/Time: 09/20/24 22:21 Primary Reason for Your Visit: osteoemyelitis of the right toe Attending Provider: Kimberlyn Sands Primary Care Provider: Rashid Lou Consulting Providers: Sujey Gudino; Scotty Marsh Instructions Patient Instructions: Osteomyelitis Dc Additional Instructions / Restrictions: not to change dressing until follow up with Dr Marsh within one week. Discharge Orders/Prescriptions Prescriptions: New doxycycline hyclate 100 mg tablet 100 mg PO BID Qty: 14 0RF Continued cetirizine [Zyrtec] 10 mg Tablet 10 mg PO DAILY cholecalciferol (vitamin D3) 1,250 mcg (50,000 unit) capsule 1 unit PO QWEEK Patient Comments: take 1 capsule by mouth every week acetaminophen [Acetaminophen Pain Relief] 500 mg tablet 1,000 mg PO Q8H PRN PRN (Reason: pain) Qty: 30 0RF duloxetine 60 mg capsule,delayed release(DR/EC) 60 mg PO DAILY Jardiance 10 mg tablet 25 mg PO DAILY tizanidine 4 mg tablet 2 - 4 mg PO TID PRN PRN (Reason: muscle spasticity) carbamazepine 200 mg tablet 200 mg PO 12 carbamazepine 200 mg Tablet 400 mg PO BID Referrals / Follow Up: Scotty Marsh DPM [Med Staff - Active Staff] - Within 1 Week Rashid Lou DO [Primary Care Provider] - Within 1 Week Disposition Disposition (needs filled in before D/C Order can be placed): Home, Self Care Charges/Coding Visit Charges Inpatient E&M: 03665 Disch Hosp >30min
[2024-09-22 17:25] LABS: Bedside Glucose 201 mg/dL (74-106)
== END 2024-09-22 17:41 | disposition home or self-care (01) | DRG 314 ==
LOC: ED 19:43 → MS3 22:40
PROVIDERS: Podiatrist; Admitting Provider Internal Medicine; Emergency Provider Emergency Medicine; PCP Family Medicine; Visit Provider Student in an Organized Health Care Education/Training Program
PROC: 0Y6U0Z0 Detachment at Left 3rd Toe, Complete, Open Approach (ICD-10-PCS; principal; 2024-09-21 11:15)
DX: E11.69 Type 2 diabetes mellitus with other specified complication (principal); L03.116 Cellulitis of left lower limb; E11.621 Type 2 diabetes mellitus with foot ulcer; M86.172 Other acute osteomyelitis, left ankle and foot; L97.529 Non-pressure chronic ulcer of other part of left foot with unspecified severity; F17.210 Nicotine dependence, cigarettes, uncomplicated; J30.2 Other seasonal allergic rhinitis; Z79.4 Long term (current) use of insulin; E11.42 Type 2 diabetes mellitus with diabetic polyneuropathy; M54.2 Cervicalgia; G89.29 Other chronic pain; Z79.84 Long term (current) use of oral hypoglycemic drugs; Z90.49 Acquired absence of other specified parts of digestive tract; Z86.73 Personal history of transient ischemic attack (TIA), and cerebral infarction without residual deficits
CPT/HCPCS: 36415; 73660; 80048; 80053; 80202; 82962; 83036; 83735; 84100; 85025; 85027; 85652; 86140; 87070; 87075; 87077; 87186; 87205; 87640; 88305; 88311; 93005; 94668; 97802; 99285; 99406; A4216; J2405

== ENCOUNTER → 2024-11-20 | Outpatient (CLI) | payer MEDICAID, SELFPAY | END | disposition home or self-care (01) | LOC: LABSPEC 16:55 | PROVIDERS: PCP Family Medicine; Visit Provider Podiatrist | DX: L97.522 Non-pressure chronic ulcer of other part of left foot with fat layer exposed (principal) | CPT/HCPCS: 87070; 87077; 87186; 87205 ==

== ENCOUNTER → 2024-12-25 | Outpatient (CLI) | payer MEDICAID, SELFPAY | END | disposition home or self-care (01) | LOC: LABSPEC 17:03 | PROVIDERS: PCP Family Medicine; Visit Provider Podiatrist | DX: L97.822 Non-pressure chronic ulcer of other part of left lower leg with fat layer exposed (principal) | CPT/HCPCS: 87070; 87077; 87186; 87205 ==

== ENCOUNTER → 2025-01-01 | Outpatient (CLI) | payer MEDICAID, SELFPAY | END | disposition home or self-care (01) | PROVIDERS: PCP Family Medicine; Referring Provider Podiatrist; Visit Provider Podiatrist | DX: L97.524 Non-pressure chronic ulcer of other part of left foot with necrosis of bone (principal) | CPT/HCPCS: 87070; 87075; 87176; 87186; 87205 ==

== ENCOUNTER → 2025-01-30 | Outpatient (CLI) | payer MEDICAID, SELFPAY ==
--- NOTE | 2025-01-30 15:08 | ART_ITS ---
Reason For Study Reason For Study: PVD Procedure A bilateral lower extremity continuous wave Doppler with analog waveform analysis,segmental pressures,and ankle brachial indexes without exercise. Left Segmental Pressures Left brachial= 158mmHg. Left high thigh = 140mmHg. Left low thigh = 99mmHg. Left calf = 86mmHg. Left posterior tibial artery = 85mmHg. Left dorsalis pedis artery = 84mmHg. Left digit = 49 mmHg. The left dorsalis pedis waveforms are monophasic. The left posterior tibial artery waveforms are monophasic. Right Segmental Pressures Right brachial= 160mmHg. Right low thigh = 196mmHg. Right calf = 130mmHg. Right posterior tibial artery = 140mmHg. Right dorsalis pedis artery = 145mmHg. Right digit = 100 mmHg. The right dorsalis pedis waveforms are biphasic. The right posterior tibial artery waveforms are biphasic. Indices The right ankle brachial index by the dorsalis pedis is 0.91. The right ankle brachial index by the posterior tibial artery is 0.88. The right digital-brachial index is 0.63. The left ankle brachial index by the dorsalis pedis is 0.53. The left ankle brachial index by the posterior tibial artery is 0.53. The left digital-brachial index is 0.31. VL/Lower Ext Art Exam w/o Exercis Interpretation Summary Right ISABELLA 0.91, mild arterial insufficiency. Doppler/PVR waveforms and segmenta l pressures reveal distal SFA/popliteal. Left ISABELLA 0.53, moderate arterial insufficiency. Doppler/PVR waveforms ands egme ntal pressures reveal aorto-iliac, proximal femoral disease. Ordering Physician: Scotty Marsh Referring Physician: SCOTTY MARSH DPM Performed By: NICK LAMBERT Robert
--- NOTE | 2025-01-30 15:09 | CT_ITS ---
PROCEDURE: EXTREMITY LOWER WITHOUT CONTRA 01/30/2025 REASON FOR EXAM: OTHER SPECIFIED PERIPHERAL VASCULAR DISEASES neuropathy, Charcot foot TECHNIQUE: Axial CT images of the right foot obtained without intravenous contrast. Coronal and Sagittal reconstruction series were provided. CONTRAST: None One or more dose reduction techniques were used (e.g., Automated exposure control, adjustment of the mA and/or kV according to patient size, use of iterative reconstruction technique). 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 There is separation of the medial and middle cuneiform with dorsal displacement of the medial cuneiform and base of the 1st metatarsal. 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 The tibiotalar articulation appears intact. The subtalar joints are aligned. The talus and navicular articulation is aligned. The Achilles shadow and plantar fascia origins are grossly intact. A benign- appearing calcaneal spur is noted. There is no visible acute fracture. There is no visible radiopaque foreign body. Plantar soft tissue edema is noted in the midfoot with no definite soft tissue air. Mineralization is normal. 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 There is separation of the medial and middle cuneiform with dorsal displacement of the medial cuneiform and base of the 1st metatarsal. 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 Plantar soft tissue edema is noted in the midfoot with no definite soft tissue air or drainable collection. Reading Location: [facility]
== END | disposition home or self-care (01) ==
LOC: CVS 14:54
PROVIDERS: PCP Family Medicine; Referring Provider Podiatrist; Visit Provider Podiatrist
DX: M79.671 Pain in right foot (principal); I73.89 Other specified peripheral vascular diseases
CPT/HCPCS: 73700; 93923